=== PATIENT | female | born 1930 | race Caucasian/White ===

== ENCOUNTER 2017-07-25 10:26 | Day surgery (SDC) | payer OTHER ==
[~2017-07-25 10:26] MED LIST: D5 LR 1000 ML 1,000 ML IV ONE
[2017-07-25] MEDS ORDERED: DIPRIVAN VIAL 20 ML ONE (10:41)
[2017-07-25 11:56] VITALS: BP 162/83
== END 2017-07-25 11:57 | disposition home or self-care (01) ==
LOC: SURG1 10:26
PROVIDERS: ATTEND Internal Medicine Gastroenterology
PROC: 0DJ08ZZ Inspection of Upper Intestinal Tract, Via Natural or Artificial Opening Endoscopic (ICD-10-PCS; principal; 2017-07-25 15:45)
PROC: 0DB68ZX Excision of Stomach, Via Natural or Artificial Opening Endoscopic, Diagnostic (ICD-10-PCS; principal; 2017-07-25 15:45)
PROC: 0D757ZZ Dilation of Esophagus, Via Natural or Artificial Opening (ICD-10-PCS; principal; 2017-07-25 15:45)
DX: R13.19 Other dysphagia (principal); R10.13 Epigastric pain; K21.9 Gastro-esophageal reflux disease without esophagitis; K22.2 Esophageal obstruction; K22.4 Dyskinesia of esophagus; K20.8 Other esophagitis; K29.60 Other gastritis without bleeding
CPT/HCPCS: 99100; A4217; J3490; J7120

== ENCOUNTER 2017-08-18 00:59 | Inpatient (IN) | payer OTHER ==
--- NOTE | 2017-08-18 01:35 | DR.GENAD ---
HPI - HPI Comment HPI Comment: PATIENT GOT WORSE TONIGHT. NO FEVER. HAVING SYMTOMS FOR PAST 3 DAYS. NO FEVER REPORTED. - Complaint/Symptoms Chief Complaint Doctors Comments: INCREASING SOB ABD CHEST PAIN TIMES 3 DAYS. - Nurses notes reviewed Nurses Notes Review: Yes - Source History Provided: Patient, [facility] - Mode of Arrival Mode of Arrival: Stretcher - Timing Came on: Gradually - Duration Duration: Constant Duration: Days - Severity Severity: Moderate PMH - PMH Past Surgical History: Yes ROS - Review of Systems Constitutional: Weakness, Fatigue. negative: Chills, Fever Eyes: No Symptoms Reported. negative: Eye Pain, Discharge ENTM: No Symptoms Reported, Nose Congestion. negative: Ear Pain, Nose Discharge , Throat Pain Respiratoy: No Symptoms Reported, Productive Cough, Short of Breath, Wheezing. negative: Hemoptysis Cardiovascular: No Symptoms Reported, Chest Pain Gastrointestinal/Abdominal: No Symptoms Reported. negative: Abdominal Pain, Nausea, Vomiting Genitourinary: negative: Dysuria, Hematuria Neurological: Headache, Weakness, Dizziness Musculoskeletal: Muscle Pain Integumentary: No Symptoms Reported Hematologic/Lymphatic: No Symptoms Reported Endocrine: No Symptoms Reported All Other Systems: Reviewed and Negative PE - Vital Signs Vitals: Temperature 98.2 F Pulse Rate [Apical] 88 Pulse Rate 73 Respiratory Rate 21 Blood Pressure [Right Arm] 160/72 Blood Pressure 139/71 O2 Sat by Pulse Oximetry 96 - General Limitations: No Limitations General Appearance: Alert - Head Head Exam: Normal Inspection - Eyes Eye exam: Normal Appearance - ENT ENT Exam: Normal External Ear Exam External Ear Exam: Normal External Inspection TM/Canal Exam: Bilateral Normal Nose Exam: Normal Nose Exam Mouth Exam: Normal Inspection Throat Exam: Normal Inspection - Neck Neck Exam: Trachea Midline - Chest Chest Inspection: Symmetric Chest Wall Rise - Respiratory Respiratory Exam: Normal Lung Sounds Bilat Respiratory Exam: Bilateral Wheezing, Bilateral Rhonchi, Lower Wheezing, Lower Rhonchi - Cardiovascular Cardiovascular Exam: Regular Rate, Normal Rhythm, Normal Heart Sounds - Abdominal Exam Abdominal Exam: Normal Bowel Sounds, Soft. negative: Tenderness - Extremities Extremities Exam: Normal Inspection - Back Back Exam: Normal Inspection - Neurologic Neurological Exam: Alert, Oriented X3 - Psychiatric Psychiatric Exam: Anxious - Skin Skin Exam: Normal Color MDM - Additional Information Additional Information Obtained From: Family - Differential Diagnosis Differential Diagnosis: CHEST PAIN, CHF, PNEUMONIA, BRONCHITIS, RESP INSUFFIENCY Course - Treatment Treatment: SEE [facility]ERS. - Consultation Consultation Comments: DISCUSS PT WITH DR. DURHAM. HE WILL ADMIT PATIENT. - Education/Counseling Education/Counseling: Patient, Family, Education Educated On: Treatment, Diagnosis ROR - Labs Reviewed Laboratory Results Reviewed?: Yes Result Diagrams: 08/18/17 01:50 08/18/17 01:50 Laboratory: WBC 7.2 X10^3/uL (3.6-10.0) 08/18/17 01:50 RBC 3.31 X10^6/uL (3.5-5.4) L 08/18/17 01:50 Hgb 9.8 g/dL (12.0-16.0) L 08/18/17 01:50 Hct 28.7 % (36.0-47.0) L 08/18/17 01:50 MCV 86.7 fL (80.0-100.0) 08/18/17 01:50 MCH 29.6 pg (27.0-34.0) 08/18/17 01:50 MCHC 34.2 g/dL (33.0-35.0) 08/18/17 01:50 RDW 16.9 % (11.6-16.5) H 08/18/17 01:50 Plt Count 236 X10^3/uL (150.0-450.0) 08/18/17 01:50 Plt Count Comment Adequate (ADEQUATE) 08/18/17 01:50 MPV 8.8 fL (7.4-11.0) 08/18/17 01:50 Neut % (Auto) 19.6 % (42.0-75.0) L 08/18/17 01:50 Lymph % (Auto) 70.8 % (21.0-51.0) H 08/18/17 01:50 [place] % (Auto) 8.3 % (0.0-13.0) 08/18/17 01:50 Eos % (Auto) 0.6 % (0.9-2.9) L 08/18/17 01:50 Baso % (Auto) 0.7 % (0.2-1.0) 08/18/17 01:50 Neut # (Auto) 1.4 x10^3/uL (2.2-4.8) L 08/18/17 01:50 Lymph # (Auto) 5.1 X10^3/uL (1.3-2.9) H 08/18/17 01:50 [place] # (Auto) 0.6 x10^3/uL (0.3-0.8) 08/18/17 01:50 Eos # (Auto) 0.0 x10^3/uL (0.0-0.2) 08/18/17 01:50 Baso # (Auto) 0.1 X10^3/uL (0.0-0.1) 08/18/17 01:50 Absolute Nucleated RBC 0.1 /100WBC 08/18/17 01:50 Total Counted 100 08/18/17 01:50 Neutrophils % (Manual) 25 % (39-76) L 08/18/17 01:50 Band Neutrophils % 8 % (0-10) 08/18/17 01:50 Lymphocytes % (Manual) 53 % (13-43) H 08/18/17 01:50 Monocytes % (Manual) 6 % (4-9) 08/18/17 01:50 Atypical Lymphocytes 8 08/18/17 01:50 Plt Morphology Comment Normal (NORMAL) 08/18/17 01:50 RBC Morphology Abnormal (NORMAL) A 08/18/17 01:50 Hypochromasia 1+ A 08/18/17 01:50 Anisocytosis Slight A 08/18/17 01:50 Target Cells Present 08/18/17 01:50 Sodium 136 mmol/L (136-145) 08/18/17 01:50 Corrected Sodium TNP 08/18/17 01:50 Potassium 3.5 mmol/L (3.5-5.1) 08/18/17 01:50 Chloride 98 mmol/L (98-107) 08/18/17 01:50 Carbon Dioxide 29.8 mmol/L (21-32) 08/18/17 01:50 BUN 20 mg/dL (7-18) H 08/18/17 01:50 Creatinine 1.41 mg/dL (0.55-1.02) H 08/18/17 01:50 Est GFR (MDRD) Af Amer 45 (>60) L 08/18/17 01:50 Est GFR (MDRD) Non-Af 37 (>60) L 08/18/17 01:50 Glucose 106 mg/dL (65-99) H 08/18/17 01:50 Lactic Acid 1.4 mmol/L (0.4-2.0) 08/18/17 01:50 Calcium 8.6 mg/dL (8.5-10.1) 08/18/17 01:50 Corrected Calcium 9.6 mg/dL (8.5-10.1) 08/18/17 01:50 Total Bilirubin 0.20 mg/dL (0.2-1.0) 08/18/17 01:50 AST 20 Units/L (15-37) 08/18/17 01:50 ALT 12 Units/L (12-78) 08/18/17 01:50 Alkaline Phosphatase 92 Units/L (46-116) 08/18/17 01:50 Creatine Kinase 72 Units/L (26-192) 08/18/17 01:50 CK-MB (CK-2) 2.2 ng/mL (0-4.0) 08/18/17 01:50 CK/CKMB % Calc 3.1 % (<4) 08/18/17 01:50 Troponin I 0.18 ng/mL (0-1.5) 08/18/17 01:50 C-Reactive Protein 26.50 mg/L (0-3.0) H 08/18/17 01:50 Total Protein 8.5 g/dL (6.4-8.2) H 08/18/17 01:50 Albumin 2.7 g/dL (3.4-5.0) L 08/18/17 01:50 Globulin 5.8 g/dL (2.5-4.5) H 08/18/17 01:50 Albumin/Globulin Ratio 0.5 Ratio (1.1-2.1) L 08/18/17 01:50 - XRAY XRAY Interpreted by: Radiologist XRAY Findings: REPORT DISCUSS WITH PATIENT AND SON. - EKG Rhythm: NSR (EKG NOTED) - Diagnosis Discharge Problem: SOB (shortness of breath) Pneumonia Qualifiers: Pneumonia type: due to unspecified organism Laterality: right Lung location: lower lobe of lung Qualified Code(s): J18.1 - Lobar pneumonia, unspecified organism CHF (congestive heart failure) Qualifiers: Heart failure type: combined systolic and diastolic Heart failure chronicity: acute on chronic Qualified Code(s): I50.43 - Acute on chronic combined systolic (congestive) and diastolic (congestive) heart failure - Discharge Plan Disposition: ADMITTED INPATIENT Condition: Stable - Follow ups/Referrals - Instructions
[2017-08-18 01:36] VITALS: BMI 19.3
[2017-08-18] MEDS ORDERED: DUONEB 0.5 MG/3 MG NEB ONE (01:38)
[2017-08-18 02:03] LABS: BASOPHILS # (AUTO) 0.1 X10^3/uL (0.0-0.1); BASOPHILS % (AUTO) 0.7 % (0.2-1.0); EOSINOPHILS % (AUTO) 0.6 % (0.9-2.9); HEMATOCRIT 28.7 % (36.0-47.0); HEMOGLOBIN 9.8 g/dL (12.0-16.0); LYMPHOCYTES # (AUTO) 5.1 X10^3/uL (1.3-2.9); LYMPHOCYTES % (AUTO) 70.8 % (21.0-51.0); MEAN CORPUSCULAR HEMOGLOBIN 29.6 pg (27.0-34.0); MEAN CORPUSCULAR HGB CONC 34.2 g/dL (33.0-35.0); MEAN CORPUSCULAR VOLUME 86.7 fL (80.0-100.0); MEAN PLATELET VOLUME 8.8 fL (7.4-11.0); MONOCYTES # (AUTO) 0.6 x10^3/uL (0.3-0.8); MONOCYTES % (AUTO) 8.3 % (0.0-13.0); NEUTROPHILS # (AUTO) 1.4 x10^3/uL (2.2-4.8); NEUTROPHILS % (AUTO) 19.6 % (42.0-75.0); PLATELET COUNT 236 X10^3/uL (150.0-450.0); RED BLOOD COUNT 3.31 X10^6/uL (3.5-5.4); RED CELL DISTRIBUTION WIDTH 16.9 % (11.6-16.5); WHITE BLOOD COUNT 7.2 X10^3/uL (3.6-10.0)
[2017-08-18 02:23] LABS: BAND NEUTROPHILS % 8 % (0-10); BLOOD UREA NITROGEN 20 mg/dL (7-18); CALCIUM 8.6 mg/dL (8.5-10.1); CARBON DIOXIDE 29.8 mmol/L (21-32); CHLORIDE 98 mmol/L (98-107); CREATININE 1.41 mg/dL (0.55-1.02); SODIUM 136 mmol/L (136-145); TROPONIN I 0.18 ng/mL (0-1.5); eGFR BLACK RACES 45 (>60); eGFR NON BLACK RACES 37 (>60)
[2017-08-18 02:24] LABS: ANISOCYTOSIS SLIGHT; HYPOCHROMASIA 1+; PLATELET MORPHOLOGY COMMENT NORMAL (NORMAL); TARGET CELLS PRESENT
[2017-08-18 02:28] LABS: LACTIC ACID 1.4 mmol/L (0.4-2.0)
--- NOTE | 2017-08-18 02:33 | RAD ---
AP chest Indication: Shortness of breath Comparison: 08/16/2017 Findings: Trachea is midline. Heart size remains enlarged. There is a large right-sided pleural effus ion with dense consolidation within the right mid lower lung consistent with either compressive atele ctasis or developing infiltrate. Left lung demonstrates chronic interstitial lung change without foca l airspace opacity. There is a small left-sided pleural effusion as well. No acute osseous abnormalit y. Impression: 1.Large right and small left-sided pleural effusions, consolidation within the right mid and lower akbar ng likely represents compressive atelectasis versus developing infiltrate for which clinical correlat ion is needed. 2.Stable cardiomegaly. Reported By:
[2017-08-18] MEDS ORDERED: XANAX PO ONE ×2 (02:41→13:39)
[2017-08-18 02:42] LABS: ALANINE AMINOTRANSFERASE 12 Units/L (12-78); ALBUMIN 2.7 g/dL (3.4-5.0); ALKALINE PHOSPHATASE 92 Units/L (46-116); ASPARTATE AMINO TRANSFERASE 20 Units/L (15-37); CKMB % 3.1 % (<4); COR CA(FOR HYPOALB) 9.6 mg/dL (8.5-10.1); CREATINE KINASE 72 Units/L (26-192); CREATINE KINASE MB 2.2 ng/mL (0-4.0); TOTAL PROTEIN 8.5 g/dL (6.4-8.2)
[2017-08-18] MEDS ORDERED: XANAX ONE (02:44)
[2017-08-18 02:47] LABS: C-REACTIVE PROTEIN 26.5 mg/L (0-3.0)
[2017-08-18] MEDS ORDERED: LEVAQUIN PREMIX IV 750 MG 750 MG/150 ML BAG IV ONE ×2 (02:48→02:50)
[2017-08-18] MEDS ORDERED: NS 1000 ML 1,000 ML ONE (02:50)
[2017-08-18] MEDS: NS 1000 ML 1,000 ML IV SCH (02:59)
[2017-08-18] MEDS ORDERED: CONSULT PHARMACY - ANTIBIOTIC XX SCH (05:00)
[2017-08-18] MEDS ORDERED: SALINE 3% 15 ML NEB TX ONE (05:29)
[2017-08-18 06:01] LABS: CKMB % 2.7 % (<4); TROPONIN I 0.16 ng/mL (0-1.5)
[2017-08-18 06:05] LABS: BILIRUBIN,URINE NEGATIVE (NEGATIVE); BLOOD/HEMOGLOBIN,URINE 3+ (NEGATIVE); GLUCOSE, URINE NEGATIVE (NEGATIVE); KETONES,URINE NEGATIVE (NEGATIVE); LEUKOCYTE ESTERASE ,URINE NEGATIVE (NEGATIVE); NITRITES,URINE NEGATIVE (NEGATIVE); PROTEIN,URINE 3+ (NEGATIVE); UROBILINOGEN,URINE NORMAL (NORMAL)
[2017-08-18 06:18] LABS: APPEARANCE,URINE CLEAR (CLEAR); COLOR,URINE YELLOW (YELLOW)
[2017-08-18 06:22] LABS: AMORPHOUS SEDIMENT,UR 2+ /HPF (NEGATIVE); BACTERIA,URINE NEGATIVE /HPF (NEGATIVE); SQUAMOUS EPITHELIAL CELL,UR RARE /HPF (NEGATIVE)
[2017-08-18] MEDS: BUMEX INJ 1 MG VIAL IVP SCH ×3 (06:35→10:04)
[2017-08-18] MEDS: DUONEB 0.5 MG/3 MG NEB SCH ×4 (09:00→20:15)
[2017-08-18] MEDS ORDERED: BENICAR TAB 40 MG PO SCH (09:00)
[2017-08-18] MEDS: ALBUMIN HUMAN 25%- 100ML 100 ML IV SCH (09:30)
[2017-08-18] MEDS: PROTONIX INJ 40 MG VIAL IVP SCH ×2 (09:32→20:41)
[2017-08-18] MEDS: ROBITUSSIN DM PO SCH ×5 (09:32→21:07)
[2017-08-18] MEDS: PEPCID 20 MG IV PREMIX* 20 MG/50 ML BAG IV SCH ×2 (09:50→20:21)
[2017-08-18 11:19] LABS: BASOPHILS % (AUTO) 0.4 % (0.2-1.0); EOSINOPHILS % (AUTO) 0.8 % (0.9-2.9); HEMATOCRIT 25.7 % (36.0-47.0); HEMOGLOBIN 8.8 g/dL (12.0-16.0); LYMPHOCYTES # (AUTO) 3.9 X10^3/uL (1.3-2.9); LYMPHOCYTES % (AUTO) 68.4 % (21.0-51.0); MEAN CORPUSCULAR HEMOGLOBIN 29.9 pg (27.0-34.0); MEAN CORPUSCULAR HGB CONC 34.4 g/dL (33.0-35.0); MEAN CORPUSCULAR VOLUME 87.1 fL (80.0-100.0); MEAN PLATELET VOLUME 8.2 fL (7.4-11.0); MONOCYTES # (AUTO) 0.6 x10^3/uL (0.3-0.8); MONOCYTES % (AUTO) 10.3 % (0.0-13.0); NEUTROPHILS # (AUTO) 1.2 x10^3/uL (2.2-4.8); NEUTROPHILS % (AUTO) 20.1 % (42.0-75.0); PLATELET COUNT 218 X10^3/uL (150.0-450.0); RED BLOOD COUNT 2.95 X10^6/uL (3.5-5.4); RED CELL DISTRIBUTION WIDTH 16.9 % (11.6-16.5); WHITE BLOOD COUNT 5.7 X10^3/uL (3.6-10.0)
[2017-08-18 11:42] LABS: ALANINE AMINOTRANSFERASE 12 Units/L (12-78); ALBUMIN 3.5 g/dL (3.4-5.0); ALKALINE PHOSPHATASE 75 Units/L (46-116); ASPARTATE AMINO TRANSFERASE 18 Units/L (15-37); BLOOD UREA NITROGEN 17 mg/dL (7-18); CALCIUM 8.5 mg/dL (8.5-10.1); CARBON DIOXIDE 30.8 mmol/L (21-32); CHLORIDE 99 mmol/L (98-107); SODIUM 139 mmol/L (136-145); TOTAL PROTEIN 8.6 g/dL (6.4-8.2); eGFR BLACK RACES 42 (>60); eGFR NON BLACK RACES 35 (>60)
[2017-08-18] MEDS ORDERED: NS 250 ML IV 250 ML IV ONE (12:36)
[2017-08-18] MEDS ORDERED: SODIUM BICARBONATE 8.4% INJ ADULT ONE (12:36)
[2017-08-18] MEDS ORDERED: CALCIUM GLUCONATE 10% IV ONE (12:36)
[2017-08-18 13:00] LABS: CKMB % 2.9 % (<4); CREATINE KINASE MB 1.7 ng/mL (0-4.0); TROPONIN I 0.17 ng/mL (0-1.5)
[2017-08-18 13:05] LABS: BAND NEUTROPHILS % 1 % (0-10); BASOPHILS % (MANUAL) 1 % (0-1); PLATELET MORPHOLOGY COMMENT NORMAL (NORMAL)
[2017-08-18] MEDS ORDERED: ASCORBIC ACID 1000 MG PO SCH (13:45)
[2017-08-18] MEDS: XANAX PO SCH ×2 (13:50→21:36)
[2017-08-18] MEDS: PATIENT'S HOME MEDICATION (Amino Acids/Protein Hydrolys [Pro-Stat Awc Liquid Packet] 30 ML PO SCH ×2 (14:59→21:07)
[2017-08-18] MEDS ORDERED: VITAMIN C ONE (15:53)
[2017-08-18] MEDS: COZAAR PO SCH (16:18)
[2017-08-18] MEDS: NORCO 10/325 TAB PO SCH ×3 (16:18→21:34)
[2017-08-18] MEDS: TAB-A-VITE PO SCH (16:19)
[2017-08-18] MEDS ORDERED: K-RIDER 10 MEQ/NS 100 ML 10 MEQ/100 ML BAG IV PRN (16:23)
[2017-08-18] MEDS ORDERED: POTASSIUM CHLORIDE LIQ 20 MEQ UDC PO PRN (16:23)
[2017-08-18] MEDS ORDERED: POTASSIUM CHL 40 MEQ/NS 0.45% 500 ML IV PRN (16:23)
[2017-08-18] MEDS ORDERED: POTASSIUM CHL 60 MEQ/NS 0.45% 500 ML IV PRN (16:23)
[2017-08-18] MEDS ORDERED: K-LYTE EFFERVESCENT PO PRN (16:23)
[2017-08-18] MEDS: ELDERTONIC + WINE PO SCH (18:32)
[2017-08-18] MEDS: MAGNESIUM SULFATE 1 GM/100 mL PREMIX 1 GM/100 ML BAG IV PRN ×2 (18:50→21:50)
[2017-08-18] MEDS: TUSSIONEX PENNKINETIC SUSP PO PRN (19:28)
[2017-08-18] MEDS: NORVASC TAB 5 MG PO SCH (20:39)
[2017-08-18] MEDS: VITAMIN C PO SCH (20:41)
[2017-08-18] MEDS: ZOLOFT PO SCH (20:41)
[2017-08-18] MEDS: ZyrTEC TAB 10 MG PO SCH (20:41)
[2017-08-18] MEDS: MIRALAX POWDER (1 DOSE 17GM) PO SCH (20:48)
[2017-08-18] MEDS: PATIENT'S HOME MEDICATION (Lubiprostone [Amitiza] 8 MCG) PO SCH (20:49)
[2017-08-19] MEDS: DUONEB 0.5 MG/3 MG NEB SCH ×6 (00:35→20:25)
[2017-08-19] MEDS: NORCO 10/325 TAB PO SCH ×5 (02:00→21:50)
[2017-08-19] MEDS: NS 1000 ML 1,000 ML IV SCH (05:59)
[2017-08-19] MEDS: XANAX PO SCH ×4 (06:46→21:52)
[2017-08-19 06:48] LABS: BASOPHILS % (AUTO) 0.4 % (0.2-1.0); EOSINOPHILS # (AUTO) 0.1 x10^3/uL (0.0-0.2); EOSINOPHILS % (AUTO) 0.8 % (0.9-2.9); HEMATOCRIT 24.7 % (36.0-47.0); HEMOGLOBIN 8.5 g/dL (12.0-16.0); LYMPHOCYTES # (AUTO) 4.3 X10^3/uL (1.3-2.9); LYMPHOCYTES % (AUTO) 63.9 % (21.0-51.0); MEAN CORPUSCULAR HEMOGLOBIN 30.1 pg (27.0-34.0); MEAN CORPUSCULAR HGB CONC 34.2 g/dL (33.0-35.0); MEAN CORPUSCULAR VOLUME 87.8 fL (80.0-100.0); MEAN PLATELET VOLUME 8.8 fL (7.4-11.0); MONOCYTES # (AUTO) 0.9 x10^3/uL (0.3-0.8); MONOCYTES % (AUTO) 13.4 % (0.0-13.0); NEUTROPHILS # (AUTO) 1.5 x10^3/uL (2.2-4.8); NEUTROPHILS % (AUTO) 21.5 % (42.0-75.0); PLATELET COUNT 201 X10^3/uL (150.0-450.0); RED BLOOD COUNT 2.81 X10^6/uL (3.5-5.4); RED CELL DISTRIBUTION WIDTH 16.8 % (11.6-16.5); WHITE BLOOD COUNT 6.8 X10^3/uL (3.6-10.0)
[2017-08-19 07:06] LABS: ALANINE AMINOTRANSFERASE 12 Units/L (12-78); ALBUMIN 2.8 g/dL (3.4-5.0); ALKALINE PHOSPHATASE 66 Units/L (46-116); ASPARTATE AMINO TRANSFERASE 20 Units/L (15-37); BLOOD UREA NITROGEN 21 mg/dL (7-18); CALCIUM 8.3 mg/dL (8.5-10.1); CARBON DIOXIDE 29.5 mmol/L (21-32); CHLORIDE 102 mmol/L (98-107); COR CA(FOR HYPOALB) 9.3 mg/dL (8.5-10.1); MAGNESIUM 2.6 mg/dL (1.7-2.9); SODIUM 139 mmol/L (136-145); TOTAL PROTEIN 7.6 g/dL (6.4-8.2); eGFR BLACK RACES 42 (>60); eGFR NON BLACK RACES 35 (>60)
--- NOTE | 2017-08-19 07:11 | RAD ---
HISTORY: Shortness of breath Study: Chest AP portable Comparison: 08/18/2017 Findings: The patient is rotated to the right. The heart is mildly enlarged. No definite congestive heart failu re is noted. The aorta is calcified. There is a large right pleural effusion present obscuring the akbar ng markings in the right middle and right lower lobes. Underlying infiltrate cannot be excluded. The remainder of the lung barnett are clear. A minimal left pleural effusion is present. IMPRESSION: No change large right pleural effusion obscuring the lung markings in the right middle and right lowe r lobes Mild cardiomegaly without congestive heart failure Small left pleural effusion Reported By:
[2017-08-19 07:34] LABS: PLATELET MORPHOLOGY COMMENT NORMAL (NORMAL)
--- NOTE | 2017-08-19 08:29 | DR.H&P ---
H&P - History & Physical for Day of: H&P Date: 08/18/17 - Chief Complaint Chief Complaint: shortness of breath, chest pain - Allergies Allergies/Adverse Reactions: Allergies Allergy/AdvReac Type Severity Reaction Status Date / Time atorvastatin [From Lipitor] AdvReac Verified 08/18/17 01:37 cisapride [From Propulsid] AdvReac Verified 08/18/17 01:37 clindamycin AdvReac Verified 08/18/17 01:37 codeine AdvReac Verified 08/18/17 01:37 diazepam [From Valium] AdvReac Verified 08/18/17 01:37 famciclovir [From Famvir] AdvReac Verified 08/18/17 01:37 furosemide [From Lasix] AdvReac Verified 08/18/17 01:37 hydroxyzine [From Atarax] AdvReac Verified 08/18/17 01:37 lincomycin [From Lincocin] AdvReac Verified 08/18/17 01:37 Penicillins AdvReac Verified 08/18/17 01:37 prednisone AdvReac Verified 08/18/17 01:37 shellfish derived AdvReac Verified 08/18/17 01:37 Sulfa (Sulfonamide AdvReac Verified 08/18/17 01:37 Antibiotics) [SULFA] - History of Present Illness History of Present Illness: Ms. Wayne is a 87 year old patient of Dr.Sinclair chamberlain who presented to the emergency room from the [facility]. She presented with complaints of shortness of breath and chest pain for the past 3 days. She reports that symptoms are worse today than they have been. She is alert and oriented. She denies fever. On examination, patient is noted to have bilateral wheezes and rhonchi throughout lungs on auscultation. On arrival, vitals were 98.4, 85, 28, 100%NC/2L, 182/82. Labs were obtained. Abnormal Labs include the following: RBC 3.31, HGB 9.8, HCT 28.7, RDW 16.9, BUN 20, Creatinine 1.41, GFR ( AA) 45, GFR (NON) 37, Glucose 106, Total Protein 8.5, Albumin 2.7, Globulin 5.8 , A/G ratio 0.5. Urinalysis reveals: Protein 3+, Occult Blood 3+, RBC 3-5, Squamous Epith Cells Rare. A chest x-ray was obtained and revealed: Large right and small left-sided pleural effusions, consolidation within the right mid and lower lung likely represents compressive atelectasis versus developing infiltrate for which clinical correlation is needed. Stable cardiomegaly. EKG revealed atrial flutter with varied AV block and a heart rate of 95. Patient was given a Duoneb 0.5 MG/3 MG 1 EA NEB once, Xanax 0.25 MG PO once, and Levaquin 750 MG IV once in the emergency room. She was admitted to the hospital for further evaluation. She was started on NS 1000 ML IV @ 20 ML/HR for gentle IV hydration, Levaquin 750 MG IV Q48H for antibiotic therapy along with Duoneb 0.5 MG/3 MG 1 EA NEB Q4 for respiratory complication. Following admission, her blood pressure remained slightly elevated. We will resume home medications and start cozaar 50mg po daily today. We will continue to monitor and follow up with am labs and chest xray. - Past Medical History Past Medical History: Anxiety, Coronary Artery Disease, Depression, Diabetes, Dyslipidemia, GERD, Hypertension, Hypothyroidism - Past Surgical History Surgical History: Hysterectomy, Mastectomy - Social History Does patient currently use any type of tobacco product: No Have you used tobacco products in the last 12 months: No Type of Tobacco Use: None Does any household member use tobacco: No Alcohol Use: None Drug Use: None - Medications Home Medications: Cetirizine HCl [Zyrtec] 10 mg PO HS 08/18/17 [History Confirmed 08/18/17] Dextromethorphan-Guaifenesin [Robitussin Dm] 10 ml PO BID 08/18/17 [History Confirmed 08/18/17] Ipratropium/Albuterol Nebule [DUONEB 0.5 MG/3 MG NEBULE *] 1 nebule NEB TID [History Confirmed 08/18/17] - Review of Systems Constitutional: Weakness, Malaise. denies: Fever Eyes: No Symptoms Reported ENT: Nose Congestion Respiratory: Cough, Shortness of Breath, Wheezing Cardiovascular: Chest Pain Gastrointestinal: No Symptoms Reported Genitourinary: No Symptoms Reported Musculoskeletal: No Symptoms Reported Skin: No Symptoms Reported Neurological: Weakness, Other (headache, dizziness ) - Physical Exam Vital Signs: Temperature 98.9 F Pulse Rate [Apical] 69 Pulse Rate 86 Respiratory Rate 19 Blood Pressure [Right Arm] 142/65 Blood Pressure 139/71 O2 Sat by Pulse Oximetry 100 Oriented: Normal Eyes: Normal Ear: Normal Nose: Normal Throat: Normal Respiratory: Rhonchi Throughout, Wheezes Throughout Cardiovascular: Normal : Normal Auscultation: Bowel Sounds: Normal Palpation: Normal Tenderness: Normal Skin: Normal Musculoskeletal: Normal Psychiatric: Normal Mood Description: Calm Affect: Normal Speech Pattern: Clear - Assessment/Plan (1) Pneumonia Qualifiers: Pneumonia type: due to unspecified organism Laterality: right Lung location: lower lobe of lung Qualified Code(s): J18.1 - Lobar pneumonia, unspecified organism Status: Acute Plan: admit, levaquin 750mg iv q48h, respiratory tx, supplemental oxygen, robitussin, tussionex, continue to monitor (2) CHF (congestive heart failure) Qualifiers: Heart failure type: combined systolic and diastolic Heart failure chronicity: acute on chronic Qualified Code(s): I50.43 - Acute on chronic combined systolic (congestive) and diastolic (congestive) heart failure Status: Acute Plan: respiratory tx, supplemental oxygen, bumex, continue to monitor (3) SOB (shortness of breath) Status: Acute Plan: respiratory treatments, supplemental oxygen, continue to monitor (4) Hypertension Qualifiers: Hypertension type: essential hypertension Qualified Code(s): I10 - Essential (primary) hypertension Status: Acute Plan: losartan 50mg po daily, norvasc 5mg po daily, continue to monitor
[2017-08-19] MEDS: MIRALAX POWDER (1 DOSE 17GM) PO SCH ×2 (08:58→21:51)
[2017-08-19] MEDS: VITAMIN C PO SCH ×2 (08:58→21:52)
[2017-08-19] MEDS: PROTONIX INJ 40 MG VIAL IVP SCH ×2 (08:59→21:52)
[2017-08-19] MEDS: ROBITUSSIN DM PO SCH ×4 (08:59→21:52)
[2017-08-19] MEDS: PATIENT'S HOME MEDICATION (Amino Acids/Protein Hydrolys [Pro-Stat Awc Liquid Packet] 30 ML PO SCH ×2 (08:59→21:51)
[2017-08-19] MEDS: PATIENT'S HOME MEDICATION (Lubiprostone [Amitiza] 8 MCG) PO SCH ×2 (08:59→21:51)
[2017-08-19] MEDS: BUMEX INJ 1 MG VIAL IVP SCH (09:00)
[2017-08-19] MEDS: ALBUMIN HUMAN 25%- 100ML 100 ML IV SCH (09:00)
[2017-08-19] MEDS: TAB-A-VITE PO SCH (09:01)
[2017-08-19] MEDS: COZAAR PO SCH (09:01)
[2017-08-19] MEDS: PEPCID 20 MG IV PREMIX* 20 MG/50 ML BAG IV SCH ×2 (09:02→21:51)
[2017-08-19] MEDS: NYSTATIN SUSP PO SCH ×3 (13:46→21:51)
[2017-08-19] MEDS: ELDERTONIC + WINE PO SCH (16:59)
[2017-08-19] MEDS: NORVASC TAB 5 MG PO SCH (21:51)
[2017-08-19] MEDS: ZyrTEC TAB 10 MG PO SCH (21:52)
[2017-08-19] MEDS: ZOLOFT PO SCH (21:52)
[2017-08-20] MEDS: DUONEB 0.5 MG/3 MG NEB SCH ×5 (01:29→16:31)
[2017-08-20] MEDS: NORCO 10/325 TAB PO SCH ×6 (02:16→20:53)
--- NOTE | 2017-08-20 04:36 | RAD ---
AP chest Indication: Shortness breath Comparison: 08/19/2017 Findings: No change large right-sided pleural effusion. Stable small left-sided pleural effusion Hear t size remains enlarged . Trachea is midline. Hazy opacity within the right lung base and right mid l ayaan likely represents compressive atelectasis however developing infiltrate within the right lower lo be is not excluded. No acute osseous abnormality. Impression: Since previous examination no significant change in cardiomegaly, large right-sided pleur al effusion and dense airspace consolidation within the right mid and lower lung likely representing compressive atelectasis however clinical correlation is needed as parapneumonic effusion or underlyin g malignancy is not excluded Stable small left-sided pleural Reported By:
[2017-08-20 05:21] LABS: BASOPHILS % (AUTO) 0.3 % (0.2-1.0); EOSINOPHILS # (AUTO) 0.1 x10^3/uL (0.0-0.2); EOSINOPHILS % (AUTO) 1.5 % (0.9-2.9); HEMATOCRIT 24.4 % (36.0-47.0); HEMOGLOBIN 8.2 g/dL (12.0-16.0); LYMPHOCYTES # (AUTO) 3.9 X10^3/uL (1.3-2.9); LYMPHOCYTES % (AUTO) 61.7 % (21.0-51.0); MEAN CORPUSCULAR HEMOGLOBIN 29.8 pg (27.0-34.0); MEAN CORPUSCULAR HGB CONC 33.4 g/dL (33.0-35.0); MEAN CORPUSCULAR VOLUME 89.2 fL (80.0-100.0); MEAN PLATELET VOLUME 8.6 fL (7.4-11.0); MONOCYTES # (AUTO) 0.8 x10^3/uL (0.3-0.8); MONOCYTES % (AUTO) 13.1 % (0.0-13.0); NEUTROPHILS # (AUTO) 1.5 x10^3/uL (2.2-4.8); NEUTROPHILS % (AUTO) 23.4 % (42.0-75.0); PLATELET COUNT 210 X10^3/uL (150.0-450.0); RED BLOOD COUNT 2.74 X10^6/uL (3.5-5.4); RED CELL DISTRIBUTION WIDTH 16.9 % (11.6-16.5); WHITE BLOOD COUNT 6.3 X10^3/uL (3.6-10.0)
[2017-08-20 05:46] LABS: ALANINE AMINOTRANSFERASE 13 Units/L (12-78); ALBUMIN 3.2 g/dL (3.4-5.0); ALKALINE PHOSPHATASE 66 Units/L (46-116); ASPARTATE AMINO TRANSFERASE 18 Units/L (15-37); BLOOD UREA NITROGEN 22 mg/dL (7-18); CALCIUM 8.3 mg/dL (8.5-10.1); CARBON DIOXIDE 27.7 mmol/L (21-32); CHLORIDE 101 mmol/L (98-107); COR CA(FOR HYPOALB) 8.9 mg/dL (8.5-10.1); CREATININE 1.57 mg/dL (0.55-1.02); SODIUM 138 mmol/L (136-145); TOTAL PROTEIN 7.8 g/dL (6.4-8.2); eGFR BLACK RACES 40 (>60); eGFR NON BLACK RACES 33 (>60)
[2017-08-20] MEDS: XANAX PO SCH ×3 (05:48→21:47)
[2017-08-20] MEDS: NS 1000 ML 1,000 ML IV SCH (05:57)
[2017-08-20 06:14] LABS: BAND NEUTROPHILS % 1 % (0-10); PLATELET MORPHOLOGY COMMENT NORMAL (NORMAL)
[2017-08-20 06:15] LABS: HYPOCHROMASIA SLIGHT
[2017-08-20] MEDS: COLACE CAP 100 MG PO SCH ×4 (08:10→20:52)
[2017-08-20] MEDS: ALBUMIN HUMAN 25%- 100ML 100 ML IV SCH (08:11)
[2017-08-20] MEDS: PATIENT'S HOME MEDICATION (Amino Acids/Protein Hydrolys [Pro-Stat Awc Liquid Packet] 30 ML PO SCH ×4 (08:12→20:49)
[2017-08-20] MEDS: BUMEX INJ 1 MG VIAL IVP SCH (08:12)
[2017-08-20] MEDS: COZAAR PO SCH ×3 (08:12→10:05)
[2017-08-20] MEDS: MIRALAX POWDER (1 DOSE 17GM) PO SCH ×4 (08:13→20:50)
[2017-08-20] MEDS: ROBITUSSIN DM PO SCH ×6 (08:13→20:53)
[2017-08-20] MEDS: NYSTATIN SUSP PO SCH ×6 (08:13→20:54)
[2017-08-20] MEDS: LEVAQUIN PREMIX IV 750 MG 750 MG/150 ML BAG IV SCH (08:13)
[2017-08-20] MEDS: PROTONIX INJ 40 MG VIAL IVP SCH ×2 (08:13→20:50)
[2017-08-20] MEDS: PATIENT'S HOME MEDICATION (Lubiprostone [Amitiza] 8 MCG) PO SCH ×4 (08:13→20:47)
[2017-08-20] MEDS: VITAMIN C PO SCH ×4 (08:14→20:50)
[2017-08-20] MEDS: TAB-A-VITE PO SCH ×3 (08:14→10:05)
[2017-08-20] MEDS: LASIX IVP SCH ×2 (14:37→15:54)
[2017-08-20] MEDS: PEPCID 20 MG IV PREMIX* 20 MG/50 ML BAG IV SCH ×2 (14:37→20:54)
[2017-08-20] MEDS: ELDERTONIC + WINE PO SCH (17:55)
[2017-08-20] MEDS: ZOLOFT PO SCH (20:51)
[2017-08-20] MEDS: ZyrTEC TAB 10 MG PO SCH (20:52)
[2017-08-20] MEDS: NORVASC TAB 5 MG PO SCH (20:52)
[2017-08-21] MEDS: DUONEB 0.5 MG/3 MG NEB SCH ×7 (00:52→21:49)
[2017-08-21] MEDS: TUSSIONEX PENNKINETIC SUSP PO PRN (03:00)
[2017-08-21] MEDS: NORCO 10/325 TAB PO SCH ×4 (03:00→20:31)
[2017-08-21] MEDS: NS 1000 ML 1,000 ML IV SCH ×2 (04:11→16:54)
[2017-08-21] MEDS: XANAX PO SCH ×3 (05:39→22:01)
[2017-08-21 05:58] LABS: ALANINE AMINOTRANSFERASE 12 Units/L (12-78); ALBUMIN 3.4 g/dL (3.4-5.0); ALKALINE PHOSPHATASE 71 Units/L (46-116); ASPARTATE AMINO TRANSFERASE 16 Units/L (15-37); BLOOD UREA NITROGEN 26 mg/dL (7-18); CALCIUM 8.3 mg/dL (8.5-10.1); CARBON DIOXIDE 28.5 mmol/L (21-32); CHLORIDE 100 mmol/L (98-107); CREATININE 1.59 mg/dL (0.55-1.02); SODIUM 136 mmol/L (136-145); TOTAL PROTEIN 7.8 g/dL (6.4-8.2); eGFR BLACK RACES 39 (>60); eGFR NON BLACK RACES 33 (>60)
[2017-08-21 06:11] LABS: BASOPHILS % (AUTO) 0.3 % (0.2-1.0); EOSINOPHILS # (AUTO) 0.1 x10^3/uL (0.0-0.2); EOSINOPHILS % (AUTO) 1.8 % (0.9-2.9); HEMOGLOBIN 8.3 g/dL (12.0-16.0); LYMPHOCYTES # (AUTO) 3.6 X10^3/uL (1.3-2.9); LYMPHOCYTES % (AUTO) 52.7 % (21.0-51.0); MEAN CORPUSCULAR HEMOGLOBIN 30.4 pg (27.0-34.0); MEAN CORPUSCULAR HGB CONC 34.6 g/dL (33.0-35.0); MEAN CORPUSCULAR VOLUME 87.8 fL (80.0-100.0); MEAN PLATELET VOLUME 8.9 fL (7.4-11.0); MONOCYTES # (AUTO) 0.7 x10^3/uL (0.3-0.8); MONOCYTES % (AUTO) 10.9 % (0.0-13.0); NEUTROPHILS # (AUTO) 2.3 x10^3/uL (2.2-4.8); NEUTROPHILS % (AUTO) 34.3 % (42.0-75.0); PLATELET COUNT 219 X10^3/uL (150.0-450.0); RED BLOOD COUNT 2.74 X10^6/uL (3.5-5.4); RED CELL DISTRIBUTION WIDTH 16.9 % (11.6-16.5); WHITE BLOOD COUNT 6.7 X10^3/uL (3.6-10.0)
--- NOTE | 2017-08-21 07:00 | RAD ---
HISTORY: Shortness of breath Study: Chest AP portable Comparison: 08/20/2017 Findings: The patient is rotated significantly to the right. Heart size difficult to assess due to obscuration of the right heart border by a large right pleural effusion which obscures the lung markings in the r ight middle and right lower lobe. It is unchanged from the prior examination. The remainder of the akbar ng barnett are clear. The bony thorax is unremarkable. IMPRESSION: No change large right pleural effusion obscuring the lung markings in the right middle and right lowe r lobes. Underlying atelectasis infiltrate or neoplasm could not be is. Reported By:
[2017-08-21] MEDS: MIRALAX POWDER (1 DOSE 17GM) PO SCH ×2 (08:57→20:33)
[2017-08-21] MEDS: PROTONIX INJ 40 MG VIAL IVP SCH ×2 (08:58→20:33)
[2017-08-21] MEDS: BUMEX INJ 1 MG VIAL IVP SCH (08:58)
[2017-08-21] MEDS: PEPCID 20 MG IV PREMIX* 20 MG/50 ML BAG IV SCH (08:58)
[2017-08-21] MEDS: COZAAR PO SCH (08:59)
[2017-08-21] MEDS: NYSTATIN SUSP PO SCH ×4 (08:59→20:33)
[2017-08-21] MEDS: ROBITUSSIN DM PO SCH ×4 (08:59→20:33)
[2017-08-21] MEDS: VITAMIN C PO SCH ×2 (08:59→20:32)
[2017-08-21] MEDS: TAB-A-VITE PO SCH (08:59)
[2017-08-21] MEDS: PATIENT'S HOME MEDICATION (Amino Acids/Protein Hydrolys [Pro-Stat Awc Liquid Packet] 30 ML PO SCH ×2 (09:00→20:33)
[2017-08-21] MEDS: PATIENT'S HOME MEDICATION (Lubiprostone [Amitiza] 8 MCG) PO SCH ×2 (09:00→20:31)
--- NOTE | 2017-08-21 16:46 | CT ---
HISTORY: Shortness of breath Study: CT chest without contrast Comparison: Chest radiographs performed earlier today also on August 21, 2017 Technique: Multiple axial images of the chest were obtained from the thoracic inlet to the upper abdo men without the administration of IV contrast. Findings: Scattered subcentimeter lymph nodes are seen within the mediastinum. Evaluation of the mediastinum, h ilar regions, and vascular structures is limited without IV contrast. A small pericardial effusion i s noted measuring 7 mm in thickness anteriorly. Atherosclerotic changes are seen within the visualiz ed coronary arteries and aorta. A large right-sided pleural effusion with adjacent atelectasis is not ed. A small to moderate left-sided pleural effusion with adjacent atelectasis is demonstrated as well . An approximate 6 mm nodular opacity is seen within the right upper lobe on image 28 of series 8. An approximate 4 mm nodular opacity is seen within the left upper lobe on image 22 of series 8. An appr oximate 5 mm nodular opacity is seen within the left lower lobe on image 27 of series 8. A moderate-s ize hiatal hernia is demonstrated. Surgical clips are seen within the gallbladder fossa. Degenerative changes are seen within the visualized spine. IMPRESSION: Bilateral pulmonary nodules as discussed above. Recommend follow-up exam in 3-6 months unless clinica lly indicated sooner. Bilateral pleural effusions right greater than left as noted above. Small pericardial effusion. Other findings as noted above. Reported By:
[2017-08-21] MEDS: ZyrTEC TAB 10 MG PO SCH (20:31)
[2017-08-21] MEDS: ZOLOFT PO SCH (20:32)
[2017-08-21] MEDS: COLACE CAP 100 MG PO SCH (20:32)
[2017-08-21] MEDS: NORVASC TAB 5 MG PO SCH (20:32)
[2017-08-22] MEDS: DUONEB 0.5 MG/3 MG NEB SCH ×6 (00:56→21:45)
[2017-08-22] MEDS: NORCO 10/325 TAB PO SCH ×4 (02:00→21:03)
[2017-08-22] MEDS: NS 1000 ML 1,000 ML IV SCH (04:28)
[2017-08-22] MEDS: XANAX PO SCH ×3 (05:47→21:04)
[2017-08-22 06:28] LABS: BASOPHILS % (AUTO) 0.3 % (0.2-1.0); EOSINOPHILS # (AUTO) 0.1 x10^3/uL (0.0-0.2); EOSINOPHILS % (AUTO) 1.1 % (0.9-2.9); HEMATOCRIT 26.5 % (36.0-47.0); HEMOGLOBIN 8.9 g/dL (12.0-16.0); LYMPHOCYTES # (AUTO) 3.8 X10^3/uL (1.3-2.9); LYMPHOCYTES % (AUTO) 46.8 % (21.0-51.0); MEAN CORPUSCULAR HEMOGLOBIN 29.5 pg (27.0-34.0); MEAN CORPUSCULAR HGB CONC 33.7 g/dL (33.0-35.0); MEAN CORPUSCULAR VOLUME 87.5 fL (80.0-100.0); MONOCYTES # (AUTO) 0.8 x10^3/uL (0.3-0.8); MONOCYTES % (AUTO) 10.3 % (0.0-13.0); NEUTROPHILS # (AUTO) 3.4 x10^3/uL (2.2-4.8); NEUTROPHILS % (AUTO) 41.5 % (42.0-75.0); PLATELET COUNT 246 X10^3/uL (150.0-450.0); RED BLOOD COUNT 3.03 X10^6/uL (3.5-5.4); RED CELL DISTRIBUTION WIDTH 17.2 % (11.6-16.5); WHITE BLOOD COUNT 8.2 X10^3/uL (3.6-10.0)
[2017-08-22 07:26] LABS: ALANINE AMINOTRANSFERASE 12 Units/L (12-78); ALBUMIN 3.3 g/dL (3.4-5.0); ALKALINE PHOSPHATASE 79 Units/L (46-116); ASPARTATE AMINO TRANSFERASE 20 Units/L (15-37); BLOOD UREA NITROGEN 32 mg/dL (7-18); CALCIUM 8.9 mg/dL (8.5-10.1); CARBON DIOXIDE 25.2 mmol/L (21-32); CHLORIDE 101 mmol/L (98-107); COR CA(FOR HYPOALB) 9.5 mg/dL (8.5-10.1); CREATININE 1.51 mg/dL (0.55-1.02); SODIUM 138 mmol/L (136-145); TOTAL PROTEIN 8.2 g/dL (6.4-8.2); eGFR BLACK RACES 42 (>60); eGFR NON BLACK RACES 35 (>60)
[2017-08-22] MEDS: BUMEX INJ 1 MG VIAL IVP SCH ×2 (08:20→21:07)
[2017-08-22] MEDS: ROBITUSSIN DM PO SCH ×4 (08:20→21:08)
[2017-08-22] MEDS: NYSTATIN SUSP PO SCH ×4 (08:20→21:08)
[2017-08-22] MEDS: PROTONIX INJ 40 MG VIAL IVP SCH ×2 (08:20→21:08)
[2017-08-22] MEDS: PEPCID 20 MG IV PREMIX* 20 MG/50 ML BAG IV SCH (08:20)
[2017-08-22] MEDS: LEVAQUIN PREMIX IV 750 MG 750 MG/150 ML BAG IV SCH (08:20)
[2017-08-22] MEDS: VITAMIN C PO SCH ×2 (08:21→21:06)
[2017-08-22] MEDS: COZAAR PO SCH (08:21)
[2017-08-22] MEDS: PATIENT'S HOME MEDICATION (Amino Acids/Protein Hydrolys [Pro-Stat Awc Liquid Packet] 30 ML PO SCH ×2 (08:21→21:08)
[2017-08-22] MEDS: PATIENT'S HOME MEDICATION (Lubiprostone [Amitiza] 8 MCG) PO SCH ×2 (08:21→21:02)
[2017-08-22] MEDS: MIRALAX POWDER (1 DOSE 17GM) PO SCH ×2 (08:22→21:09)
[2017-08-22] MEDS: TAB-A-VITE PO SCH (08:26)
[2017-08-22] MEDS: MUCOMYST 20% 200 MG/ML NEB SCH ×4 (13:08→21:45)
--- NOTE | 2017-08-22 18:00 | PCM.PROG ---
Progress Note - Progress Note for Day of Date: 08/21/17 - Subjective Subjective: 87 wf admitted on 08/18 with pneumonia. Pt is currently on iv atbx and continues with diffuse rhonchi, decrease lung bases. pt more awake and alert this am, states she cannot cough up any mucous. pt is npo for ct chest this am. will continue resp therapy and supplemenatl o2, encourage pulmonary toileting, diuretics I & Os - Past Medical Family Social History Past Med/Fam/Surg Hx: No changes since H&P Allergies: Allergies atorvastatin [From Lipitor] Adverse Reaction (Verified 08/18/17 01:37) cisapride [From Propulsid] Adverse Reaction (Verified 08/18/17 01:37) clindamycin Adverse Reaction (Verified 08/18/17 01:37) codeine Adverse Reaction (Verified 08/18/17 01:37) diazepam [From Valium] Adverse Reaction (Verified 08/18/17 01:37) famciclovir [From Famvir] Adverse Reaction (Verified 08/18/17 01:37) furosemide [From Lasix] Adverse Reaction (Verified 08/18/17 01:37) hydroxyzine [From Atarax] Adverse Reaction (Verified 08/18/17 01:37) lincomycin [From Lincocin] Adverse Reaction (Verified 08/18/17 01:37) Penicillins Adverse Reaction (Verified 08/18/17 01:37) prednisone Adverse Reaction (Verified 08/18/17 01:37) shellfish derived Adverse Reaction (Verified 08/18/17 01:37) Sulfa (Sulfonamide Antibiotics) [SULFA] Adverse Reaction (Verified 08/18/17 01: 37) - Review of Systems ROS: No change since H&P - Vital Signs and I&O's Vital Signs: Temperature 98.4 F Pulse Rate [Right Brachial] 87 Pulse Rate [Apical] 84 Pulse Rate 88 Respiratory Rate 20 Blood Pressure [Right Arm] 125/58 Blood Pressure 139/71 O2 Sat by Pulse Oximetry 96 Intake and Output: Intake & Output 08/20/17 08/21/17 08/22/17 08/23/17 11:59 11:59 11:59 11:59 Intake Total 1451 1647 900 560 Output Total 1075 2150 1975 800 Balance 320 -083 -2902 -045 - Physical Exam Oriented: Normal Eyes: Normal Ear: Normal Nose: Normal Throat: Normal Respiratory: Diminished, Rhonchi Cardiovascular: Normal : Normal Auscultation: Bowel Sounds: Normal Tenderness: Normal Skin: Normal Musculoskeletal: Normal Psychiatric: Normal Mood Description: Calm Affect: Normal Speech Pattern: Clear, Appropriate - Laboratory and Diagnostics Result Diagrams: 08/22/17 05:25 08/22/17 05:25 Labs: 08/19/17 13:40 Sputum - Expectorated Sputum Sputum Culture - Final 08/19/17 13:40 Sputum - Expectorated Sputum - Final 08/18/17 01:50 Blood Blood Culture - Preliminary 08/18/17 01:40 Blood Blood Culture - Preliminary Laboratory WBC 8.2 X10^3/uL (3.6-10.0) 08/22/17 05:25 RBC 3.03 X10^6/uL (3.5-5.4) L 08/22/17 05:25 Hgb 8.9 g/dL (12.0-16.0) L 08/22/17 05:25 Hct 26.5 % (36.0-47.0) L 08/22/17 05:25 MCV 87.5 fL (80.0-100.0) 08/22/17 05:25 MCH 29.5 pg (27.0-34.0) 08/22/17 05:25 MCHC 33.7 g/dL (33.0-35.0) 08/22/17 05:25 RDW 17.2 % (11.6-16.5) H 08/22/17 05:25 Plt Count 246 X10^3/uL (150.0-450.0) 08/22/17 05:25 Plt Count Comment Adequate (ADEQUATE) 08/20/17 04:50 MPV 9.0 fL (7.4-11.0) 08/22/17 05:25 Neut % (Auto) 41.5 % (42.0-75.0) L 08/22/17 05:25 Lymph % (Auto) 46.8 % (21.0-51.0) 08/22/17 05:25 [place] % (Auto) 10.3 % (0.0-13.0) 08/22/17 05:25 Eos % (Auto) 1.1 % (0.9-2.9) 08/22/17 05:25 Baso % (Auto) 0.3 % (0.2-1.0) 08/22/17 05:25 Neut # (Auto) 3.4 x10^3/uL (2.2-4.8) 08/22/17 05:25 Lymph # (Auto) 3.8 X10^3/uL (1.3-2.9) H 08/22/17 05:25 [place] # (Auto) 0.8 x10^3/uL (0.3-0.8) 08/22/17 05:25 Eos # (Auto) 0.1 x10^3/uL (0.0-0.2) 08/22/17 05:25 Baso # (Auto) 0.0 X10^3/uL (0.0-0.1) 08/22/17 05:25 Absolute Nucleated RBC 0.1 /100WBC 08/22/17 05:25 Total Counted 100 08/20/17 04:50 Neutrophils % (Manual) 21 % (39-76) L 08/20/17 04:50 Band Neutrophils % 1 % (0-10) 08/20/17 04:50 Lymphocytes % (Manual) 66 % (13-43) H 08/20/17 04:50 Monocytes % (Manual) 10 % (4-9) H 08/20/17 04:50 Eosinophils % (Manual) 2 % (0-6) 08/20/17 04:50 Basophils % (Manual) 1 % (0-1) 08/18/17 11:03 Atypical Lymphocytes 8 08/18/17 01:50 Plt Morphology Comment Normal (NORMAL) 08/20/17 04:50 RBC Morphology Abnormal (NORMAL) A 08/20/17 04:50 Hypochromasia Slight A 08/20/17 04:50 Anisocytosis Slight A 08/18/17 01:50 Target Cells Present 08/18/17 01:50 Sodium 138 mmol/L (136-145) 08/22/17 05:25 Corrected Sodium TNP 08/22/17 05:25 Potassium 3.9 mmol/L (3.5-5.1) 08/22/17 05:25 Chloride 101 mmol/L (98-107) 08/22/17 05:25 Carbon Dioxide 25.2 mmol/L (21-32) 08/22/17 05:25 BUN 32 mg/dL (7-18) H 08/22/17 05:25 Creatinine 1.51 mg/dL (0.55-1.02) H 08/22/17 05:25 Est GFR (MDRD) Af Amer 42 (>60) L 08/22/17 05:25 Est GFR (MDRD) Non-Af 35 (>60) L 08/22/17 05:25 Glucose 104 mg/dL (65-99) H 08/22/17 05:25 Lactic Acid 1.4 mmol/L (0.4-2.0) 08/18/17 01:50 Calcium 8.9 mg/dL (8.5-10.1) 08/22/17 05:25 Corrected Calcium 9.5 mg/dL (8.5-10.1) 08/22/17 05:25 Magnesium 2.6 mg/dL (1.7-2.9) 08/19/17 06:05 Total Bilirubin 0.30 mg/dL (0.2-1.0) 08/22/17 05:25 AST 20 Units/L (15-37) 08/22/17 05:25 ALT 12 Units/L (12-78) 08/22/17 05:25 Alkaline Phosphatase 79 Units/L (46-116) 08/22/17 05:25 Creatine Kinase 59 Units/L (26-192) 08/18/17 11:03 CK-MB (CK-2) 1.7 ng/mL (0-4.0) 08/18/17 11:03 CK/CKMB % Calc 2.9 % (<4) 08/18/17 11:03 Troponin I 0.17 ng/mL (0-1.5) 08/18/17 11:03 C-Reactive Protein 26.50 mg/L (0-3.0) H 08/18/17 01:50 Total Protein 8.2 g/dL (6.4-8.2) 08/22/17 05:25 Albumin 3.3 g/dL (3.4-5.0) L 08/22/17 05:25 Globulin 4.9 g/dL (2.5-4.5) H 08/22/17 05:25 Albumin/Globulin Ratio 0.7 Ratio (1.1-2.1) L 08/22/17 05:25 Specimen Type Catherized urine 08/18/17 05:21 Urine Color Yellow (YELLOW) 08/18/17 05:21 Urine Appearance Clear (CLEAR) 08/18/17 05:21 Urine pH 6.0 (5.0 - 8.0) 08/18/17 05:21 Ur Specific [place] 1.010 (1.000-1.030) 08/18/17 05:21 Urine Protein 3+ (NEGATIVE) 08/18/17 05:21 Urine Glucose (UA) Negative (NEGATIVE) 08/18/17 05:21 Urine Ketones Negative (NEGATIVE) 08/18/17 05:21 Urine Occult Blood 3+ (NEGATIVE) 08/18/17 05:21 Urine Nitrite Negative (NEGATIVE) 08/18/17 05:21 Urine Bilirubin Negative (NEGATIVE) 08/18/17 05:21 Urine Urobilinogen Normal (NORMAL) 08/18/17 05:21 Ur Leukocyte Esterase Negative (NEGATIVE) 08/18/17 05:21 Urine RBC 3-5 /HPF (NONE SEEN) 08/18/17 05:21 Urine WBC None seen /HPF (NONE SEEN) 08/18/17 05:21 Ur Squamous Epith Cells Rare /HPF (NEGATIVE) 08/18/17 05:21 Amorphous Sediment 2+ /HPF (NEGATIVE) 08/18/17 05:21 Urine Bacteria Negative /HPF (NEGATIVE) 08/18/17 05:21 Ur Culture Indicated? No/not indicated 08/18/17 05:21 - Plan (1) Pneumonia Status: Acute Qualifiers: Pneumonia type: due to unspecified organism Laterality: right Lung location: lower lobe of lung Qualified Code(s): J18.1 - Lobar pneumonia, unspecified organism Plan: levaquin 750mg iv q48h, respiratory tx, supplemental oxygen, robitussin, tussionex, continue to monitor (2) CHF (congestive heart failure) Status: Acute Qualifiers: Heart failure type: combined systolic and diastolic Heart failure chronicity: acute on chronic Qualified Code(s): I50.43 - Acute on chronic combined systolic (congestive) and diastolic (congestive) heart failure Plan: respiratory tx, supplemental oxygen, bumex, continue to monitor (3) Hypertension Status: Acute Qualifiers: Hypertension type: essential hypertension Qualified Code(s): I10 - Essential (primary) hypertension Plan: losartan 50mg po daily, norvasc 5mg po daily, continue to monitor
--- NOTE | 2017-08-22 18:02 | PCM.PROG ---
Progress Note - Progress Note for Day of Date: 08/22/17 - Subjective Subjective: 87 wf admitted on 08/18 with pneumonia. Pt is currently on iv atbx and continues with diffuse rhonchi, decrease lung bases. pt more awake and alert this am, co left upper abdominal pain. pt also co poor appetite. pt had ct chest on 08/21 with pulmonary effusion, consult resp for bipap, will continue resp therapy and supplemental o2, encourage pulmonary toileting, diuretics I & Os cardiac monitoring - Past Medical Family Social History Past Med/Fam/Surg Hx: No changes since H&P Allergies: Allergies atorvastatin [From Lipitor] Adverse Reaction (Verified 08/18/17 01:37) cisapride [From Propulsid] Adverse Reaction (Verified 08/18/17 01:37) clindamycin Adverse Reaction (Verified 08/18/17 01:37) codeine Adverse Reaction (Verified 08/18/17 01:37) diazepam [From Valium] Adverse Reaction (Verified 08/18/17 01:37) famciclovir [From Famvir] Adverse Reaction (Verified 08/18/17 01:37) furosemide [From Lasix] Adverse Reaction (Verified 08/18/17 01:37) hydroxyzine [From Atarax] Adverse Reaction (Verified 08/18/17 01:37) lincomycin [From Lincocin] Adverse Reaction (Verified 08/18/17 01:37) Penicillins Adverse Reaction (Verified 08/18/17 01:37) prednisone Adverse Reaction (Verified 08/18/17 01:37) shellfish derived Adverse Reaction (Verified 08/18/17 01:37) Sulfa (Sulfonamide Antibiotics) [SULFA] Adverse Reaction (Verified 08/18/17 01: 37) - Review of Systems ROS: No change since H&P - Vital Signs and I&O's Vital Signs: Temperature 98.4 F Pulse Rate [Right Brachial] 87 Pulse Rate [Apical] 84 Pulse Rate 88 Respiratory Rate 20 Blood Pressure [Right Arm] 125/58 Blood Pressure 139/71 O2 Sat by Pulse Oximetry 96 Intake and Output: Intake & Output 08/20/17 08/21/17 08/22/17 08/23/17 11:59 11:59 11:59 11:59 Intake Total 1451 1647 900 560 Output Total 1075 2150 1975 800 Balance 135 -330 -4978 -666 - Physical Exam Oriented: Normal Eyes: Normal Ear: Normal Nose: Normal Throat: Normal Respiratory: Diminished, Rhonchi Cardiovascular: Normal : Normal Auscultation: Bowel Sounds: Normal Tenderness: Normal Skin: Normal Musculoskeletal: Normal Psychiatric: Normal Mood Description: Calm Affect: Normal Speech Pattern: Clear, Appropriate - Laboratory and Diagnostics Result Diagrams: 08/22/17 05:25 08/22/17 05:25 Labs: 08/19/17 13:40 Sputum - Expectorated Sputum Sputum Culture - Final 08/19/17 13:40 Sputum - Expectorated Sputum - Final 08/18/17 01:50 Blood Blood Culture - Preliminary 08/18/17 01:40 Blood Blood Culture - Preliminary Laboratory WBC 8.2 X10^3/uL (3.6-10.0) 08/22/17 05:25 RBC 3.03 X10^6/uL (3.5-5.4) L 08/22/17 05:25 Hgb 8.9 g/dL (12.0-16.0) L 08/22/17 05:25 Hct 26.5 % (36.0-47.0) L 08/22/17 05:25 MCV 87.5 fL (80.0-100.0) 08/22/17 05:25 MCH 29.5 pg (27.0-34.0) 08/22/17 05:25 MCHC 33.7 g/dL (33.0-35.0) 08/22/17 05:25 RDW 17.2 % (11.6-16.5) H 08/22/17 05:25 Plt Count 246 X10^3/uL (150.0-450.0) 08/22/17 05:25 Plt Count Comment Adequate (ADEQUATE) 08/20/17 04:50 MPV 9.0 fL (7.4-11.0) 08/22/17 05:25 Neut % (Auto) 41.5 % (42.0-75.0) L 08/22/17 05:25 Lymph % (Auto) 46.8 % (21.0-51.0) 08/22/17 05:25 Jerome % (Auto) 10.3 % (0.0-13.0) 08/22/17 05:25 Eos % (Auto) 1.1 % (0.9-2.9) 08/22/17 05:25 Baso % (Auto) 0.3 % (0.2-1.0) 08/22/17 05:25 Neut # (Auto) 3.4 x10^3/uL (2.2-4.8) 08/22/17 05:25 Lymph # (Auto) 3.8 X10^3/uL (1.3-2.9) H 08/22/17 05:25 Jerome # (Auto) 0.8 x10^3/uL (0.3-0.8) 08/22/17 05:25 Eos # (Auto) 0.1 x10^3/uL (0.0-0.2) 08/22/17 05:25 Baso # (Auto) 0.0 X10^3/uL (0.0-0.1) 08/22/17 05:25 Absolute Nucleated RBC 0.1 /100WBC 08/22/17 05:25 Total Counted 100 08/20/17 04:50 Neutrophils % (Manual) 21 % (39-76) L 08/20/17 04:50 Band Neutrophils % 1 % (0-10) 08/20/17 04:50 Lymphocytes % (Manual) 66 % (13-43) H 08/20/17 04:50 Monocytes % (Manual) 10 % (4-9) H 08/20/17 04:50 Eosinophils % (Manual) 2 % (0-6) 08/20/17 04:50 Basophils % (Manual) 1 % (0-1) 08/18/17 11:03 Atypical Lymphocytes 8 08/18/17 01:50 Plt Morphology Comment Normal (NORMAL) 08/20/17 04:50 RBC Morphology Abnormal (NORMAL) A 08/20/17 04:50 Hypochromasia Slight A 08/20/17 04:50 Anisocytosis Slight A 08/18/17 01:50 Target Cells Present 08/18/17 01:50 Sodium 138 mmol/L (136-145) 08/22/17 05:25 Corrected Sodium TNP 08/22/17 05:25 Potassium 3.9 mmol/L (3.5-5.1) 08/22/17 05:25 Chloride 101 mmol/L (98-107) 08/22/17 05:25 Carbon Dioxide 25.2 mmol/L (21-32) 08/22/17 05:25 BUN 32 mg/dL (7-18) H 08/22/17 05:25 Creatinine 1.51 mg/dL (0.55-1.02) H 08/22/17 05:25 Est GFR (MDRD) Af Amer 42 (>60) L 08/22/17 05:25 Est GFR (MDRD) Non-Af 35 (>60) L 08/22/17 05:25 Glucose 104 mg/dL (65-99) H 08/22/17 05:25 Lactic Acid 1.4 mmol/L (0.4-2.0) 08/18/17 01:50 Calcium 8.9 mg/dL (8.5-10.1) 08/22/17 05:25 Corrected Calcium 9.5 mg/dL (8.5-10.1) 08/22/17 05:25 Magnesium 2.6 mg/dL (1.7-2.9) 08/19/17 06:05 Total Bilirubin 0.30 mg/dL (0.2-1.0) 08/22/17 05:25 AST 20 Units/L (15-37) 08/22/17 05:25 ALT 12 Units/L (12-78) 08/22/17 05:25 Alkaline Phosphatase 79 Units/L (46-116) 08/22/17 05:25 Creatine Kinase 59 Units/L (26-192) 08/18/17 11:03 CK-MB (CK-2) 1.7 ng/mL (0-4.0) 08/18/17 11:03 CK/CKMB % Calc 2.9 % (<4) 08/18/17 11:03 Troponin I 0.17 ng/mL (0-1.5) 08/18/17 11:03 C-Reactive Protein 26.50 mg/L (0-3.0) H 08/18/17 01:50 Total Protein 8.2 g/dL (6.4-8.2) 08/22/17 05:25 Albumin 3.3 g/dL (3.4-5.0) L 08/22/17 05:25 Globulin 4.9 g/dL (2.5-4.5) H 08/22/17 05:25 Albumin/Globulin Ratio 0.7 Ratio (1.1-2.1) L 08/22/17 05:25 Specimen Type Catherized urine 08/18/17 05:21 Urine Color Yellow (YELLOW) 08/18/17 05:21 Urine Appearance Clear (CLEAR) 08/18/17 05:21 Urine pH 6.0 (5.0 - 8.0) 08/18/17 05:21 Ur Specific [place] 1.010 (1.000-1.030) 08/18/17 05:21 Urine Protein 3+ (NEGATIVE) 08/18/17 05:21 Urine Glucose (UA) Negative (NEGATIVE) 08/18/17 05:21 Urine Ketones Negative (NEGATIVE) 08/18/17 05:21 Urine Occult Blood 3+ (NEGATIVE) 08/18/17 05:21 Urine Nitrite Negative (NEGATIVE) 08/18/17 05:21 Urine Bilirubin Negative (NEGATIVE) 08/18/17 05:21 Urine Urobilinogen Normal (NORMAL) 08/18/17 05:21 Ur Leukocyte Esterase Negative (NEGATIVE) 08/18/17 05:21 Urine RBC 3-5 /HPF (NONE SEEN) 08/18/17 05:21 Urine WBC None seen /HPF (NONE SEEN) 08/18/17 05:21 Ur Squamous Epith Cells Rare /HPF (NEGATIVE) 08/18/17 05:21 Amorphous Sediment 2+ /HPF (NEGATIVE) 08/18/17 05:21 Urine Bacteria Negative /HPF (NEGATIVE) 08/18/17 05:21 Ur Culture Indicated? No/not indicated 08/18/17 05:21 - Plan (1) Pneumonia Status: Acute Qualifiers: Pneumonia type: due to unspecified organism Laterality: right Lung location: lower lobe of lung Qualified Code(s): J18.1 - Lobar pneumonia, unspecified organism Plan: levaquin 750mg iv q48h, respiratory tx, supplemental oxygen, robitussin, tussionex, continue to monitor (2) CHF (congestive heart failure) Status: Acute Qualifiers: Heart failure type: combined systolic and diastolic Heart failure chronicity: acute on chronic Qualified Code(s): I50.43 - Acute on chronic combined systolic (congestive) and diastolic (congestive) heart failure Plan: respiratory tx, supplemental oxygen, bumex, continue to monitor (3) Hypertension Status: Acute Qualifiers: Hypertension type: essential hypertension Qualified Code(s): I10 - Essential (primary) hypertension Plan: losartan 50mg po daily, norvasc 5mg po daily, continue to monitor
[2017-08-22] MEDS: ZyrTEC TAB 10 MG PO SCH (21:03)
[2017-08-22] MEDS: COLACE CAP 100 MG PO SCH (21:04)
[2017-08-22] MEDS: MEGACE PO SCH ×2 (21:05→21:08)
[2017-08-22] MEDS: NORVASC TAB 5 MG PO SCH (21:05)
[2017-08-22] MEDS: ZOLOFT PO SCH (21:05)
[2017-08-22] MEDS: SOLU-Medrol 40 MG VIAL IVP SCH ×2 (21:42)
[2017-08-23] MEDS: DUONEB 0.5 MG/3 MG NEB SCH ×7 (01:36→21:21)
[2017-08-23] MEDS: NORCO 10/325 TAB PO SCH ×5 (04:10→20:34)
[2017-08-23] MEDS: NS 1000 ML 1,000 ML IV SCH ×2 (04:11→20:43)
[2017-08-23] MEDS: XANAX PO SCH ×5 (05:10→23:28)
[2017-08-23] MEDS: SOLU-Medrol 40 MG VIAL IVP SCH ×4 (05:10→23:29)
[2017-08-23 06:12] LABS: BASOPHILS # (AUTO) 0.1 X10^3/uL (0.0-0.1); HEMATOCRIT 27.1 % (36.0-47.0); HEMOGLOBIN 9.3 g/dL (12.0-16.0); LYMPHOCYTES # (AUTO) 1.6 X10^3/uL (1.3-2.9); LYMPHOCYTES % (AUTO) 29.4 % (21.0-51.0); MEAN CORPUSCULAR HEMOGLOBIN 29.9 pg (27.0-34.0); MEAN CORPUSCULAR HGB CONC 34.3 g/dL (33.0-35.0); MEAN CORPUSCULAR VOLUME 87.2 fL (80.0-100.0); MEAN PLATELET VOLUME 9.1 fL (7.4-11.0); MONOCYTES # (AUTO) 0 x10^3/uL (0.3-0.8); MONOCYTES % (AUTO) 0.8 % (0.0-13.0); NEUTROPHILS # (AUTO) 3.9 x10^3/uL (2.2-4.8); NEUTROPHILS % (AUTO) 68.8 % (42.0-75.0); PLATELET COUNT 269 X10^3/uL (150.0-450.0); RED BLOOD COUNT 3.11 X10^6/uL (3.5-5.4); RED CELL DISTRIBUTION WIDTH 17.1 % (11.6-16.5); WHITE BLOOD COUNT 5.6 X10^3/uL (3.6-10.0)
[2017-08-23 06:36] LABS: ALBUMIN 3.3 g/dL (3.4-5.0); CALCIUM 8.8 mg/dL (8.5-10.1); CARBON DIOXIDE 27.1 mmol/L (21-32); COR CA(FOR HYPOALB) 9.4 mg/dL (8.5-10.1); CREATININE 1.66 mg/dL (0.55-1.02); TOTAL PROTEIN 8.5 g/dL (6.4-8.2)
[2017-08-23] MEDS: MUCOMYST 20% 200 MG/ML NEB SCH ×5 (08:09→21:21)
[2017-08-23] MEDS: COZAAR PO SCH (09:38)
[2017-08-23] MEDS: PATIENT'S HOME MEDICATION (Lubiprostone [Amitiza] 8 MCG) PO SCH ×2 (09:38→20:33)
[2017-08-23] MEDS: PATIENT'S HOME MEDICATION (Amino Acids/Protein Hydrolys [Pro-Stat Awc Liquid Packet] 30 ML PO SCH ×2 (09:38→23:27)
[2017-08-23] MEDS: MEGACE PO SCH ×2 (09:39→20:34)
[2017-08-23] MEDS: MIRALAX POWDER (1 DOSE 17GM) PO SCH ×2 (09:39→20:36)
[2017-08-23] MEDS: VITAMIN C PO SCH ×2 (09:39→20:35)
[2017-08-23] MEDS: TAB-A-VITE PO SCH (09:40)
[2017-08-23] MEDS: ROBITUSSIN DM PO SCH ×4 (09:40→20:36)
[2017-08-23] MEDS: BUMEX INJ 1 MG VIAL IVP SCH ×2 (09:41→20:36)
[2017-08-23] MEDS: PROTONIX INJ 40 MG VIAL IVP SCH ×2 (09:41→20:36)
[2017-08-23] MEDS: NYSTATIN SUSP PO SCH ×4 (09:41→20:36)
--- NOTE | 2017-08-23 11:54 | RAD ---
History: CHF, pneumonia Study: Chest single view Findings: Single AP portable examination of chest is obtained and comparison made to previous chest r adiograph and CT of the chest dated 08/21/2017. There is hazy density from the right mid lung field c audally obliterating the right heart border and right hemidiaphragm as before. This is known to repre sent a combination of a moderate to large size pleural effusion and underlying right middle and lower lobe atelectasis. There is also hazy density at the left lung base obscuring the distal descending a mary and diaphragm consistent with effusion and atelectasis as well. Impression: No significant interval change is demonstrated. Reported By:
[2017-08-23] MEDS: ZyrTEC TAB 10 MG PO SCH (20:30)
[2017-08-23] MEDS: ZOLOFT PO SCH (20:33)
[2017-08-23] MEDS: NORVASC TAB 5 MG PO SCH (20:35)
[2017-08-23] MEDS: COLACE CAP 100 MG PO SCH (20:36)
[2017-08-24] MEDS: DUONEB 0.5 MG/3 MG NEB SCH ×6 (01:03→20:43)
[2017-08-24] MEDS: NORCO 10/325 TAB PO SCH ×4 (03:00→20:57)
[2017-08-24] MEDS: TUSSIONEX PENNKINETIC SUSP PO PRN ×2 (04:56→16:45)
[2017-08-24] MEDS: XANAX PO SCH ×3 (05:40→20:59)
[2017-08-24] MEDS: SOLU-Medrol 40 MG VIAL IVP SCH ×3 (05:40→20:59)
[2017-08-24] MEDS: MUCOMYST 20% 200 MG/ML NEB SCH ×4 (09:03→20:43)
[2017-08-24 09:34] LABS: BASOPHILS % (AUTO) 0.1 % (0.2-1.0); HEMATOCRIT 27.2 % (36.0-47.0); HEMOGLOBIN 9.2 g/dL (12.0-16.0); LYMPHOCYTES # (AUTO) 1.5 X10^3/uL (1.3-2.9); LYMPHOCYTES % (AUTO) 28.8 % (21.0-51.0); MEAN CORPUSCULAR HEMOGLOBIN 29.6 pg (27.0-34.0); MEAN PLATELET VOLUME 8.9 fL (7.4-11.0); MONOCYTES # (AUTO) 0.3 x10^3/uL (0.3-0.8); NEUTROPHILS # (AUTO) 3.5 x10^3/uL (2.2-4.8); NEUTROPHILS % (AUTO) 66.1 % (42.0-75.0); PLATELET COUNT 281 X10^3/uL (150.0-450.0); RED BLOOD COUNT 3.13 X10^6/uL (3.5-5.4); RED CELL DISTRIBUTION WIDTH 17.3 % (11.6-16.5); WHITE BLOOD COUNT 5.2 X10^3/uL (3.6-10.0)
[2017-08-24] MEDS: PATIENT'S HOME MEDICATION (Amino Acids/Protein Hydrolys [Pro-Stat Awc Liquid Packet] 30 ML PO SCH ×2 (09:36→21:04)
[2017-08-24] MEDS: PROTONIX INJ 40 MG VIAL IVP SCH ×2 (09:37→20:58)
[2017-08-24] MEDS: NYSTATIN SUSP PO SCH ×4 (09:37→20:58)
[2017-08-24] MEDS: MIRALAX POWDER (1 DOSE 17GM) PO SCH (09:37)
[2017-08-24] MEDS: VITAMIN C PO SCH ×2 (09:37→20:54)
[2017-08-24] MEDS: TAB-A-VITE PO SCH (09:37)
[2017-08-24] MEDS: ROBITUSSIN DM PO SCH ×4 (09:37→20:58)
[2017-08-24] MEDS: MEGACE PO SCH ×2 (09:38→21:00)
[2017-08-24] MEDS: COZAAR PO SCH (09:38)
[2017-08-24] MEDS: LEVAQUIN PREMIX IV 750 MG 750 MG/150 ML BAG IV SCH (09:38)
[2017-08-24] MEDS: PATIENT'S HOME MEDICATION (Lubiprostone [Amitiza] 8 MCG) PO SCH ×2 (09:38→21:05)
[2017-08-24] MEDS: BUMEX INJ 1 MG VIAL IVP SCH (09:38)
[2017-08-24 09:54] LABS: ALANINE AMINOTRANSFERASE 17 Units/L (12-78); ALBUMIN 3.4 g/dL (3.4-5.0); ALKALINE PHOSPHATASE 73 Units/L (46-116); ASPARTATE AMINO TRANSFERASE 23 Units/L (15-37); BLOOD UREA NITROGEN 33 mg/dL (7-18); CARBON DIOXIDE 26.5 mmol/L (21-32); CHLORIDE 99 mmol/L (98-107); COR NA(FOR HYPERGLY) 144 mmol/L (136-145); CREATININE 1.84 mg/dL (0.55-1.02); SODIUM 140 mmol/L (136-145); TOTAL PROTEIN 8.8 g/dL (6.4-8.2); eGFR BLACK RACES 33 (>60); eGFR NON BLACK RACES 28 (>60)
[2017-08-24] MEDS: MUCINEX DM PO SCH ×2 (12:07→20:55)
--- NOTE | 2017-08-24 13:30 | PCM.PROG ---
Progress Note - Progress Note for Day of Date: 08/24/17 - Subjective Subjective: 87 wf admitted on 08/18 with pneumonia. Pt is currently on iv atbx and continues with a productive cough and shortness of breath. bilateral lungs are noted with diffuse rhonchi, decrease lung bases. Her vitals are 98.3, 103, 20, 91%-176/79. Labs revealed hgb 9.3, hct 27.2, potassium 3.1, bun 33, creatinine 1.84, glucose 252, total protein 8.8. Otherwise, she is hemodynamically stable. Today, we will continue with iv antibiotics, bipap, will continue resp therapy and supplemental o2, encourage pulmonary toileting, diuretics I & Os cardiac monitoring. We will start Mucinex dm 2 tablets daily and the smart vest. We will follow up with am labs and chest xray and continue to monitor patient. - Past Medical Family Social History Past Med/Fam/Surg Hx: No changes since H&P Allergies: Allergies atorvastatin [From Lipitor] Adverse Reaction (Verified 08/18/17 01:37) cisapride [From Propulsid] Adverse Reaction (Verified 08/18/17 01:37) clindamycin Adverse Reaction (Verified 08/18/17 01:37) codeine Adverse Reaction (Verified 08/18/17 01:37) diazepam [From Valium] Adverse Reaction (Verified 08/18/17 01:37) famciclovir [From Famvir] Adverse Reaction (Verified 08/18/17 01:37) furosemide [From Lasix] Adverse Reaction (Verified 08/18/17 01:37) hydroxyzine [From Atarax] Adverse Reaction (Verified 08/18/17 01:37) lincomycin [From Lincocin] Adverse Reaction (Verified 08/18/17 01:37) Penicillins Adverse Reaction (Verified 08/18/17 01:37) prednisone Adverse Reaction (Verified 08/18/17 01:37) shellfish derived Adverse Reaction (Verified 08/18/17 01:37) Sulfa (Sulfonamide Antibiotics) [SULFA] Adverse Reaction (Verified 08/18/17 01: 37) - Review of Systems ROS: No change since H&P - Vital Signs and I&O's Vital Signs: Temperature 99.1 F Pulse Rate [Right Brachial] 105 Pulse Rate [Apical] 84 Pulse Rate 102 Respiratory Rate 20 Blood Pressure [Right Arm] 172/75 Blood Pressure 139/71 O2 Sat by Pulse Oximetry 90 Intake and Output: Intake & Output 08/22/17 08/23/17 08/24/17 08/25/17 11:59 11:59 11:59 11:59 Intake Total 900 1125 460 Output Total 5215 4585 1700 Balance -2778 -477 -5260 - Physical Exam Oriented: Normal Eyes: Normal Ear: Normal Nose: Normal Throat: Normal Respiratory: Diminished, Rhonchi Cardiovascular: Normal : Normal Auscultation: Bowel Sounds: Normal Tenderness: Normal Skin: Normal Musculoskeletal: Normal Psychiatric: Normal Mood Description: Calm Affect: Normal Speech Pattern: Clear, Appropriate - Laboratory and Diagnostics Result Diagrams: 08/24/17 09:20 08/24/17 09:20 Labs: 08/18/17 01:40 Blood Blood Culture - Final 08/18/17 01:50 Blood Blood Culture - Final 08/19/17 13:40 Sputum - Expectorated Sputum Sputum Culture - Final 08/19/17 13:40 Sputum - Expectorated Sputum - Final Laboratory WBC 5.2 X10^3/uL (3.6-10.0) 08/24/17 09:20 RBC 3.13 X10^6/uL (3.5-5.4) L 08/24/17 09:20 Hgb 9.2 g/dL (12.0-16.0) L 08/24/17 09:20 Hct 27.2 % (36.0-47.0) L 08/24/17 09:20 MCV 87.0 fL (80.0-100.0) 08/24/17 09:20 MCH 29.6 pg (27.0-34.0) 08/24/17 09:20 MCHC 34.0 g/dL (33.0-35.0) 08/24/17 09:20 RDW 17.3 % (11.6-16.5) H 08/24/17 09:20 Plt Count 281 X10^3/uL (150.0-450.0) 08/24/17 09:20 Plt Count Comment Adequate (ADEQUATE) 08/20/17 04:50 MPV 8.9 fL (7.4-11.0) 08/24/17 09:20 Neut % (Auto) 66.1 % (42.0-75.0) 08/24/17 09:20 Lymph % (Auto) 28.8 % (21.0-51.0) 08/24/17 09:20 Dickson % (Auto) 5.0 % (0.0-13.0) 08/24/17 09:20 Eos % (Auto) 0.0 % (0.9-2.9) L 08/24/17 09:20 Baso % (Auto) 0.1 % (0.2-1.0) L 08/24/17 09:20 Neut # (Auto) 3.5 x10^3/uL (2.2-4.8) 08/24/17 09:20 Lymph # (Auto) 1.5 X10^3/uL (1.3-2.9) 08/24/17 09:20 Dickson # (Auto) 0.3 x10^3/uL (0.3-0.8) 08/24/17 09:20 Eos # (Auto) 0.0 x10^3/uL (0.0-0.2) 08/24/17 09:20 Baso # (Auto) 0.0 X10^3/uL (0.0-0.1) 08/24/17 09:20 Absolute Nucleated RBC 0.0 /100WBC 08/24/17 09:20 Total Counted 100 08/20/17 04:50 Neutrophils % (Manual) 21 % (39-76) L 08/20/17 04:50 Band Neutrophils % 1 % (0-10) 08/20/17 04:50 Lymphocytes % (Manual) 66 % (13-43) H 08/20/17 04:50 Monocytes % (Manual) 10 % (4-9) H 08/20/17 04:50 Eosinophils % (Manual) 2 % (0-6) 08/20/17 04:50 Basophils % (Manual) 1 % (0-1) 08/18/17 11:03 Atypical Lymphocytes 8 08/18/17 01:50 Plt Morphology Comment Normal (NORMAL) 08/20/17 04:50 RBC Morphology Abnormal (NORMAL) A 08/20/17 04:50 Hypochromasia Slight A 08/20/17 04:50 Anisocytosis Slight A 08/18/17 01:50 Target Cells Present 08/18/17 01:50 Sodium 140 mmol/L (136-145) 08/24/17 09:20 Corrected Sodium 144 mmol/L (136-145) 08/24/17 09:20 Potassium 3.1 mmol/L (3.5-5.1) L 08/24/17 09:20 Chloride 99 mmol/L (98-107) 08/24/17 09:20 Carbon Dioxide 26.5 mmol/L (21-32) 08/24/17 09:20 BUN 33 mg/dL (7-18) H 08/24/17 09:20 Creatinine 1.84 mg/dL (0.55-1.02) H 08/24/17 09:20 Est GFR (MDRD) Af Amer 33 (>60) L 08/24/17 09:20 Est GFR (MDRD) Non-Af 28 (>60) L 08/24/17 09:20 Glucose 252 mg/dL (65-99) H 08/24/17 09:20 Lactic Acid 1.4 mmol/L (0.4-2.0) 08/18/17 01:50 Calcium 9.0 mg/dL (8.5-10.1) 08/24/17 09:20 Corrected Calcium TNP 08/24/17 09:20 Magnesium 2.6 mg/dL (1.7-2.9) 08/19/17 06:05 Total Bilirubin 0.30 mg/dL (0.2-1.0) 08/24/17 09:20 AST 23 Units/L (15-37) 08/24/17 09:20 ALT 17 Units/L (12-78) 08/24/17 09:20 Alkaline Phosphatase 73 Units/L (46-116) 08/24/17 09:20 Creatine Kinase 59 Units/L (26-192) 08/18/17 11:03 CK-MB (CK-2) 1.7 ng/mL (0-4.0) 08/18/17 11:03 CK/CKMB % Calc 2.9 % (<4) 08/18/17 11:03 Troponin I 0.17 ng/mL (0-1.5) 08/18/17 11:03 C-Reactive Protein 26.50 mg/L (0-3.0) H 08/18/17 01:50 Total Protein 8.8 g/dL (6.4-8.2) H 08/24/17 09:20 Albumin 3.4 g/dL (3.4-5.0) 08/24/17 09:20 Globulin 5.4 g/dL (2.5-4.5) H 08/24/17 09:20 Albumin/Globulin Ratio 0.6 Ratio (1.1-2.1) L 08/24/17 09:20 Specimen Type Catherized urine 08/18/17 05:21 Urine Color Yellow (YELLOW) 08/18/17 05:21 Urine Appearance Clear (CLEAR) 08/18/17 05:21 Urine pH 6.0 (5.0 - 8.0) 08/18/17 05:21 Ur Specific [place] 1.010 (1.000-1.030) 08/18/17 05:21 Urine Protein 3+ (NEGATIVE) 08/18/17 05:21 Urine Glucose (UA) Negative (NEGATIVE) 08/18/17 05:21 Urine Ketones Negative (NEGATIVE) 08/18/17 05:21 Urine Occult Blood 3+ (NEGATIVE) 08/18/17 05:21 Urine Nitrite Negative (NEGATIVE) 08/18/17 05:21 Urine Bilirubin Negative (NEGATIVE) 08/18/17 05:21 Urine Urobilinogen Normal (NORMAL) 08/18/17 05:21 Ur Leukocyte Esterase Negative (NEGATIVE) 08/18/17 05:21 Urine RBC 3-5 /HPF (NONE SEEN) 08/18/17 05:21 Urine WBC None seen /HPF (NONE SEEN) 08/18/17 05:21 Ur Squamous Epith Cells Rare /HPF (NEGATIVE) 08/18/17 05:21 Amorphous Sediment 2+ /HPF (NEGATIVE) 08/18/17 05:21 Urine Bacteria Negative /HPF (NEGATIVE) 08/18/17 05:21 Ur Culture Indicated? No/not indicated 08/18/17 05:21 - Plan (1) Pneumonia Status: Acute Qualifiers: Pneumonia type: due to unspecified organism Laterality: right Lung location: lower lobe of lung Qualified Code(s): J18.1 - Lobar pneumonia, unspecified organism Plan: levaquin 750mg iv q48h, respiratory tx, supplemental oxygen, robitussin, tussionex, continue to monitor (2) CHF (congestive heart failure) Status: Acute Qualifiers: Heart failure type: combined systolic and diastolic Heart failure chronicity: acute on chronic Qualified Code(s): I50.43 - Acute on chronic combined systolic (congestive) and diastolic (congestive) heart failure Plan: respiratory tx, supplemental oxygen, bumex, continue to monitor (3) SOB (shortness of breath) Status: Acute Plan: respiratory treatments, supplemental oxygen, continue to monitor (4) Hypertension Status: Acute Qualifiers: Hypertension type: essential hypertension Qualified Code(s): I10 - Essential (primary) hypertension Plan: losartan 50mg po daily, norvasc 5mg po daily, continue to monitor
[2017-08-24] MEDS: NS 1000 ML 1,000 ML IV SCH (18:21)
[2017-08-24] MEDS: ZOLOFT PO SCH (20:55)
[2017-08-24] MEDS: COLACE CAP 100 MG PO SCH (20:56)
[2017-08-24] MEDS: ZyrTEC TAB 10 MG PO SCH (20:56)
[2017-08-24] MEDS: NORVASC TAB 5 MG PO SCH (20:57)
[2017-08-25] MEDS: DUONEB 0.5 MG/3 MG NEB SCH ×4 (00:05→12:34)
[2017-08-25] MEDS: NORCO 10/325 TAB PO SCH ×4 (02:06→21:36)
[2017-08-25] MEDS: NS 1000 ML 1,000 ML IV SCH (03:34)
[2017-08-25 06:05] LABS: BASOPHILS # (AUTO) 0.1 X10^3/uL (0.0-0.1); BASOPHILS % (AUTO) 0.4 % (0.2-1.0); HEMATOCRIT 25.9 % (36.0-47.0); HEMOGLOBIN 8.9 g/dL (12.0-16.0); LYMPHOCYTES # (AUTO) 1.7 X10^3/uL (1.3-2.9); LYMPHOCYTES % (AUTO) 14.7 % (21.0-51.0); MEAN CORPUSCULAR HEMOGLOBIN 29.6 pg (27.0-34.0); MEAN CORPUSCULAR HGB CONC 34.4 g/dL (33.0-35.0); MEAN CORPUSCULAR VOLUME 85.9 fL (80.0-100.0); MEAN PLATELET VOLUME 8.7 fL (7.4-11.0); MONOCYTES # (AUTO) 0.9 x10^3/uL (0.3-0.8); NEUTROPHILS # (AUTO) 9.1 x10^3/uL (2.2-4.8); NEUTROPHILS % (AUTO) 76.9 % (42.0-75.0); PLATELET COUNT 277 X10^3/uL (150.0-450.0); RED BLOOD COUNT 3.01 X10^6/uL (3.5-5.4); RED CELL DISTRIBUTION WIDTH 17.2 % (11.6-16.5); WHITE BLOOD COUNT 11.8 X10^3/uL (3.6-10.0)
[2017-08-25] MEDS: XANAX PO SCH ×3 (06:07→21:36)
[2017-08-25] MEDS: SOLU-Medrol 40 MG VIAL IVP SCH ×2 (06:07→13:40)
[2017-08-25 06:19] LABS: ALANINE AMINOTRANSFERASE 19 Units/L (12-78); ALBUMIN 3.4 g/dL (3.4-5.0); ALKALINE PHOSPHATASE 67 Units/L (46-116); ASPARTATE AMINO TRANSFERASE 23 Units/L (15-37); BLOOD UREA NITROGEN 32 mg/dL (7-18); CALCIUM 9.1 mg/dL (8.5-10.1); CARBON DIOXIDE 28.9 mmol/L (21-32); CHLORIDE 101 mmol/L (98-107); COR NA(FOR HYPERGLY) 144 mmol/L (136-145); CREATININE 1.75 mg/dL (0.55-1.02); MAGNESIUM 1.5 mg/dL (1.7-2.9); SODIUM 142 mmol/L (136-145); TOTAL PROTEIN 8.7 g/dL (6.4-8.2); eGFR BLACK RACES 35 (>60); eGFR NON BLACK RACES 29 (>60)
--- NOTE | 2017-08-25 08:14 | RAD ---
Examination: AP chest History: SOB Comparison reference 08/23/2017 Findings: Stable cardiac size. Extensive opacity at the right base is stable, consistent with airspac e disease and pleural effusion. Persistent retrocardiac opacification again noted. No complicating pn eumothorax seen. Impression: No change. Findings remain consistent with bibasal infiltrates/atelectasis and significan t right pleural effusion. The findings may represent pneumonia and/or CHF although with the history o f mastectomy, the possibility of metastatic disease should be considered. Reported By:
[2017-08-25] MEDS: VITAMIN C PO SCH ×2 (08:20→21:34)
[2017-08-25] MEDS: TAB-A-VITE PO SCH (08:20)
[2017-08-25] MEDS: COZAAR PO SCH (08:20)
[2017-08-25] MEDS: PROTONIX INJ 40 MG VIAL IVP SCH ×2 (08:20→21:37)
[2017-08-25] MEDS: NYSTATIN SUSP PO SCH ×4 (08:20→21:37)
[2017-08-25] MEDS: ROBITUSSIN DM PO SCH ×4 (08:21→21:37)
[2017-08-25] MEDS: MEGACE PO SCH ×2 (08:26→21:37)
[2017-08-25] MEDS: PATIENT'S HOME MEDICATION (Lubiprostone [Amitiza] 8 MCG) PO SCH ×2 (08:27→21:38)
[2017-08-25] MEDS: PATIENT'S HOME MEDICATION (Amino Acids/Protein Hydrolys [Pro-Stat Awc Liquid Packet] 30 ML PO SCH ×2 (08:27→21:37)
[2017-08-25] MEDS: MUCINEX DM PO SCH ×2 (08:44→22:08)
[2017-08-25] MEDS ORDERED: XOPENEX 1.25 MG/3 ML NEBULE NEB ONE (09:04)
[2017-08-25] MEDS: XOPENEX 1.25 MG/3 ML NEBULE NEB SCH ×3 (09:10→16:25)
[2017-08-25] MEDS: KLONOPIN TAB 1 MG PO SCH ×2 (09:34→21:35)
--- NOTE | 2017-08-25 15:37 | PCM.PROG ---
Progress Note - Progress Note for Day of Date: 08/25/17 - Subjective Subjective: 87 wf admitted on 08/18 with pneumonia. Pt is currently on iv atbx and continues with a productive cough and shortness of breath. She also reports difficulty sleeping and anxiousness. bilateral lungs are noted with diffuse rhonchi, decrease lung bases. Left elbow is noted with 1+ pitting edema. Her vitals are 98.3, 103, 20, 91%-176/79. Labs revealed wbc 11.8, r bc 3.01, hgb 8.9 , hct 25.9, potassium 3.0, bun 32, creatinine 1.75, glucose 187, magnesium 1.5, total protein 8.7. Today, we will start klonopin 1mg po bid and change breathing treatments to Xopenex. Otherwise, We will follow up with am labs and chest xray and continue to monitor patient. - Past Medical Family Social History Past Med/Fam/Surg Hx: No changes since H&P Allergies: Allergies atorvastatin [From Lipitor] Adverse Reaction (Verified 08/18/17 01:37) cisapride [From Propulsid] Adverse Reaction (Verified 08/18/17 01:37) clindamycin Adverse Reaction (Verified 08/18/17 01:37) codeine Adverse Reaction (Verified 08/18/17 01:37) diazepam [From Valium] Adverse Reaction (Verified 08/18/17 01:37) famciclovir [From Famvir] Adverse Reaction (Verified 08/18/17 01:37) furosemide [From Lasix] Adverse Reaction (Verified 08/18/17 01:37) hydroxyzine [From Atarax] Adverse Reaction (Verified 08/18/17 01:37) lincomycin [From Lincocin] Adverse Reaction (Verified 08/18/17 01:37) Penicillins Adverse Reaction (Verified 08/18/17 01:37) prednisone Adverse Reaction (Verified 08/18/17 01:37) shellfish derived Adverse Reaction (Verified 08/18/17:37) Sulfa (Sulfonamide Antibiotics) [SULFA] Adverse Reaction (Verified 08/18/17 01: 37) - Review of Systems ROS: No change since H&P - Vital Signs and I&O's Vital Signs: Temperature 98.5 F Pulse Rate [Right Brachial] 100 Pulse Rate [Apical] 84 Pulse Rate 93 Respiratory Rate 20 Blood Pressure [Right Arm] 149/67 Blood Pressure 139/71 O2 Sat by Pulse Oximetry 99 Intake and Output: Intake & Output 08/23/17 08/24/17 08/25/17 08/26/17 11:59 11:59 11:59 11:59 Intake Total 1125 460 600 280 Output Total 1300 1700 1425 Balance -193 -7163 -277 280 - Physical Exam Oriented: Normal Eyes: Normal Ear: Normal Nose: Normal Throat: Normal Respiratory: Diminished, Rhonchi Cardiovascular: Normal : Normal Auscultation: Bowel Sounds: Normal Palpation: Normal Tenderness: Normal Skin: Normal Musculoskeletal: Normal Psychiatric: Normal Mood Description: Calm Affect: Normal Speech Pattern: Clear, Appropriate - Laboratory and Diagnostics Result Diagrams: 08/25/17 05:50 08/25/17 13:10 Labs: 08/18/17 01:40 Blood Blood Culture - Final 08/18/17 01:50 Blood Blood Culture - Final 08/19/17 13:40 Sputum - Expectorated Sputum Sputum Culture - Final 08/19/17 13:40 Sputum - Expectorated Sputum - Final Laboratory WBC 11.8 X10^3/uL (3.6-10.0) H 08/25/17 05:50 RBC 3.01 X10^6/uL (3.5-5.4) L 08/25/17 05:50 Hgb 8.9 g/dL (12.0-16.0) L 08/25/17 05:50 Hct 25.9 % (36.0-47.0) L 08/25/17 05:50 MCV 85.9 fL (80.0-100.0) 08/25/17 05:50 MCH 29.6 pg (27.0-34.0) 08/25/17 05:50 MCHC 34.4 g/dL (33.0-35.0) 08/25/17 05:50 RDW 17.2 % (11.6-16.5) H 08/25/17 05:50 Plt Count 277 X10^3/uL (150.0-450.0) 08/25/17 05:50 Plt Count Comment Adequate (ADEQUATE) 08/20/17 04:50 MPV 8.7 fL (7.4-11.0) 08/25/17 05:50 Neut % (Auto) 76.9 % (42.0-75.0) H 08/25/17 05:50 Lymph % (Auto) 14.7 % (21.0-51.0) L 08/25/17 05:50 [place] % (Auto) 8.0 % (0.0-13.0) 08/25/17 05:50 Eos % (Auto) 0.0 % (0.9-2.9) L 08/25/17 05:50 Baso % (Auto) 0.4 % (0.2-1.0) 08/25/17 05:50 Neut # (Auto) 9.1 x10^3/uL (2.2-4.8) H 08/25/17 05:50 Lymph # (Auto) 1.7 X10^3/uL (1.3-2.9) 08/25/17 05:50 Loving # (Auto) 0.9 x10^3/uL (0.3-0.8) H 08/25/17 05:50 Eos # (Auto) 0.0 x10^3/uL (0.0-0.2) 08/25/17 05:50 Baso # (Auto) 0.1 X10^3/uL (0.0-0.1) 08/25/17 05:50 Absolute Nucleated RBC 0.0 /100WBC 08/25/17 05:50 Total Counted 100 08/20/17 04:50 Neutrophils % (Manual) 21 % (39-76) L 08/20/17 04:50 Band Neutrophils % 1 % (0-10) 08/20/17 04:50 Lymphocytes % (Manual) 66 % (13-43) H 08/20/17 04:50 Monocytes % (Manual) 10 % (4-9) H 08/20/17 04:50 Eosinophils % (Manual) 2 % (0-6) 08/20/17 04:50 Basophils % (Manual) 1 % (0-1) 08/18/17 11:03 Atypical Lymphocytes 8 08/18/17 01:50 Plt Morphology Comment Normal (NORMAL) 08/20/17 04:50 RBC Morphology Abnormal (NORMAL) A 08/20/17 04:50 Hypochromasia Slight A 08/20/17 04:50 Anisocytosis Slight A 08/18/17 01:50 Target Cells Present 08/18/17 01:50 Sodium 142 mmol/L (136-145) 08/25/17 05:50 Corrected Sodium 144 mmol/L (136-145) 08/25/17 05:50 Potassium 4.3 mmol/L (3.5-5.1) 08/25/17 13:10 Chloride 101 mmol/L (98-107) 08/25/17 05:50 Carbon Dioxide 28.9 mmol/L (21-32) 08/25/17 05:50 BUN 32 mg/dL (7-18) H 08/25/17 05:50 Creatinine 1.75 mg/dL (0.55-1.02) H 08/25/17 05:50 Est GFR (MDRD) Af Amer 35 (>60) L 08/25/17 05:50 Est GFR (MDRD) Non-Af 29 (>60) L 08/25/17 05:50 Glucose 187 mg/dL (65-99) H 08/25/17 05:50 Lactic Acid 1.4 mmol/L (0.4-2.0) 08/18/17 01:50 Calcium 9.1 mg/dL (8.5-10.1) 08/25/17 05:50 Corrected Calcium TNP 08/25/17 05:50 Magnesium 1.5 mg/dL (1.7-2.9) L 08/25/17 05:50 Total Bilirubin 0.30 mg/dL (0.2-1.0) 08/25/17 05:50 AST 23 Units/L (15-37) 08/25/17 05:50 ALT 19 Units/L (12-78) 08/25/17 05:50 Alkaline Phosphatase 67 Units/L (46-116) 08/25/17 05:50 Creatine Kinase 59 Units/L (26-192) 08/18/17 11:03 CK-MB (CK-2) 1.7 ng/mL (0-4.0) 08/18/17 11:03 CK/CKMB % Calc 2.9 % (<4) 08/18/17 11:03 Troponin I 0.17 ng/mL (0-1.5) 08/18/17 11:03 C-Reactive Protein 26.50 mg/L (0-3.0) H 08/18/17 01:50 Total Protein 8.7 g/dL (6.4-8.2) H 08/25/17 05:50 Albumin 3.4 g/dL (3.4-5.0) 08/25/17 05:50 Globulin 5.3 g/dL (2.5-4.5) H 08/25/17 05:50 Albumin/Globulin Ratio 0.6 Ratio (1.1-2.1) L 08/25/17 05:50 Specimen Type Catherized urine 08/18/17 05:21 Urine Color Yellow (YELLOW) 08/18/17 05:21 Urine Appearance Clear (CLEAR) 08/18/17 05:21 Urine pH 6.0 (5.0 - 8.0) 08/18/17 05:21 Ur Specific [place] 1.010 (1.000-1.030) 08/18/17 05:21 Urine Protein 3+ (NEGATIVE) 08/18/17 05:21 Urine Glucose (UA) Negative (NEGATIVE) 08/18/17 05:21 Urine Ketones Negative (NEGATIVE) 08/18/17 05:21 Urine Occult Blood 3+ (NEGATIVE) 08/18/17 05:21 Urine Nitrite Negative (NEGATIVE) 08/18/17 05:21 Urine Bilirubin Negative (NEGATIVE) 08/18/17 05:21 Urine Urobilinogen Normal (NORMAL) 08/18/17 05:21 Ur Leukocyte Esterase Negative (NEGATIVE) 08/18/17 05:21 Urine RBC 3-5 /HPF (NONE SEEN) 08/18/17 05:21 Urine WBC None seen /HPF (NONE SEEN) 08/18/17 05:21 Ur Squamous Epith Cells Rare /HPF (NEGATIVE) 08/18/17 05:21 Amorphous Sediment 2+ /HPF (NEGATIVE) 08/18/17 05:21 Urine Bacteria Negative /HPF (NEGATIVE) 08/18/17 05:21 Ur Culture Indicated? No/not indicated 08/18/17 05:21 - Plan (1) Pneumonia Status: Acute Qualifiers: Pneumonia type: due to unspecified organism Laterality: right Lung location: lower lobe of lung Qualified Code(s): J18.1 - Lobar pneumonia, unspecified organism Plan: levaquin 750mg iv q48h, respiratory tx, supplemental oxygen, robitussin, tussionex, continue to monitor (2) CHF (congestive heart failure) Status: Acute Qualifiers: Heart failure type: combined systolic and diastolic Heart failure chronicity: acute on chronic Qualified Code(s): I50.43 - Acute on chronic combined systolic (congestive) and diastolic (congestive) heart failure Plan: respiratory tx, supplemental oxygen, bumex, continue to monitor (3) SOB (shortness of breath) Status: Acute Plan: respiratory treatments, supplemental oxygen, continue to monitor (4) Hypertension Status: Acute Qualifiers: Hypertension type: essential hypertension Qualified Code(s): I10 - Essential (primary) hypertension Plan: losartan 50mg po daily, norvasc 5mg po daily, continue to monitor
[2017-08-25] MEDS: MAGNESIUM SULFATE 1 GM/100 mL PREMIX 1 GM/100 ML BAG IV PRN ×2 (18:01→23:32)
[2017-08-25] MEDS: ZyrTEC TAB 10 MG PO SCH (21:33)
[2017-08-25] MEDS: COLACE CAP 100 MG PO SCH (21:35)
[2017-08-25] MEDS: ZOLOFT PO SCH (21:35)
[2017-08-25] MEDS: NORVASC TAB 5 MG PO SCH (21:40)
[2017-08-26] MEDS: XOPENEX 1.25 MG/3 ML NEBULE NEB SCH ×4 (00:55→16:31)
[2017-08-26] MEDS: NORCO 10/325 TAB PO SCH ×4 (02:21→20:47)
[2017-08-26] MEDS: XANAX PO SCH ×3 (05:49→22:42)
[2017-08-26] MEDS: NS 1000 ML 1,000 ML IV SCH (05:49)
--- NOTE | 2017-08-26 06:07 | RAD ---
HISTORY: Follow-up shortness of breath, pleural effusion Study: Chest AP portable Comparison: 08/24/2017, 08/23/2017 Findings: Heart size difficult to assess due to obscuration of the right heart border by a large right pleural effusion which is increased slightly since the prior examination and obscures the right middle and ri ght lower lobe. The right upper lobe is clear increased density remains in the retrocardiac area the left lower lobe obscuring the medial left hemidiaphragm. This could be due to atelectasis or infiltra te. The remainder of the left lung is clear. The bony thorax is unremarkable. IMPRESSION: Increasing bilateral pleural effusions obscuring the lung markings in the right middle and right lowe r lobes Increased density retrocardiac area left lower lobe likely due to infiltrate and/or atelectasis, unch anged Reported By:
[2017-08-26 06:46] LABS: BASOPHILS % (AUTO) 0.5 % (0.2-1.0); HEMATOCRIT 26.1 % (36.0-47.0); HEMOGLOBIN 8.7 g/dL (12.0-16.0); LYMPHOCYTES # (AUTO) 2.5 X10^3/uL (1.3-2.9); LYMPHOCYTES % (AUTO) 23.1 % (21.0-51.0); MEAN CORPUSCULAR HEMOGLOBIN 29.2 pg (27.0-34.0); MEAN CORPUSCULAR HGB CONC 33.5 g/dL (33.0-35.0); MEAN CORPUSCULAR VOLUME 87.2 fL (80.0-100.0); MEAN PLATELET VOLUME 9.5 fL (7.4-11.0); MONOCYTES # (AUTO) 1.8 x10^3/uL (0.3-0.8); MONOCYTES % (AUTO) 17.1 % (0.0-13.0); NEUTROPHILS # (AUTO) 6.4 x10^3/uL (2.2-4.8); NEUTROPHILS % (AUTO) 59.3 % (42.0-75.0); PLATELET COUNT 223 X10^3/uL (150.0-450.0); RED BLOOD COUNT 2.99 X10^6/uL (3.5-5.4); RED CELL DISTRIBUTION WIDTH 17.4 % (11.6-16.5); WHITE BLOOD COUNT 10.7 X10^3/uL (3.6-10.0)
[2017-08-26 07:06] LABS: CALCIUM 8.8 mg/dL (8.5-10.1); CARBON DIOXIDE 27.3 mmol/L (21-32); COR CA(FOR HYPOALB) 9.6 mg/dL (8.5-10.1); CREATININE 1.36 mg/dL (0.55-1.02); MAGNESIUM 2.5 mg/dL (1.7-2.9); TOTAL PROTEIN 7.7 g/dL (6.4-8.2)
[2017-08-26] MEDS: PATIENT'S HOME MEDICATION (Amino Acids/Protein Hydrolys [Pro-Stat Awc Liquid Packet] 30 ML PO SCH ×2 (08:29→20:51)
[2017-08-26] MEDS: COZAAR PO SCH (08:29)
[2017-08-26] MEDS: PATIENT'S HOME MEDICATION (Lubiprostone [Amitiza] 8 MCG) PO SCH ×2 (08:30→20:51)
[2017-08-26] MEDS: KLONOPIN TAB 1 MG PO SCH ×2 (08:30→20:46)
[2017-08-26] MEDS: LEVAQUIN PREMIX IV 750 MG 750 MG/150 ML BAG IV SCH (08:30)
[2017-08-26] MEDS: MUCINEX DM PO SCH ×2 (08:30→20:52)
[2017-08-26] MEDS: MEGACE PO SCH ×2 (08:30→20:51)
[2017-08-26] MEDS: NYSTATIN SUSP PO SCH ×4 (08:30→20:52)
[2017-08-26] MEDS: TAB-A-VITE PO SCH (08:31)
[2017-08-26] MEDS: ROBITUSSIN DM PO SCH ×4 (08:31→20:52)
[2017-08-26] MEDS: VITAMIN C PO SCH ×2 (08:31→20:52)
[2017-08-26] MEDS: PROTONIX INJ 40 MG VIAL IVP SCH ×2 (08:31→20:52)
[2017-08-26] MEDS: TUSSIONEX PENNKINETIC SUSP PO PRN (13:34)
[2017-08-26] MEDS: ZOLOFT PO SCH (20:46)
[2017-08-26] MEDS: COLACE CAP 100 MG PO SCH (20:51)
[2017-08-26] MEDS: NORVASC TAB 5 MG PO SCH (20:52)
[2017-08-26] MEDS: ZyrTEC TAB 10 MG PO SCH (20:53)
[2017-08-27] MEDS: NORCO 10/325 TAB PO SCH ×4 (02:40→21:17)
[2017-08-27] MEDS: NS 1000 ML 1,000 ML IV SCH (02:41)
[2017-08-27] MEDS: TUSSIONEX PENNKINETIC SUSP PO PRN ×2 (02:55→17:28)
--- NOTE | 2017-08-27 04:06 | CT ---
CT chest without contrast Indication: Pneumonia. Pleural effusions. History of left breast cancer Comparison: 08/21/2017 CT Technique: Helical images through the chest without contrast. Coronal and sagittal reformats provided . Findings: Limited images through the upper abdomen show vascular plaque and left kidney atrophy. Ther e is small hiatal hernia. Review of bone windows shows no destructive osseous lesion. There is multil evel spine degenerative change. Chest: Aortic arch branch vessel plaque again noted. Small pericardial effusion again noted, unchange d from the prior coronary calcifications noted. Blood pool density appears decreased suggesting anemi a. There is large right effusion, perhaps slightly decreased from the prior. Small left effusion is note d, slightly decreased from the prior. Compressive atelectasis is noted, without pneumothorax. Develop ing infection in the dependent portions of the lungs is possible, particularly the left upper lobe or ground-glass opacity and patchy opacities noted. Unchanged left upper lobe and left upper lobe lung nodules again noted. Impression: 1. Slight improvement in the pleural effusions, with persistent cardiomegaly, pericardial effusion an d large right effusion, small left effusion as above. 2. Dependent atelectasis. Developing basilar infection is possible. 3. Lung nodules again noted. Follow-up to resolution to exclude cancer. Reported By:
[2017-08-27] MEDS: XANAX PO SCH ×3 (05:34→21:18)
[2017-08-27] MEDS: XOPENEX 1.25 MG/3 ML NEBULE NEB SCH ×5 (07:16→20:49)
--- NOTE | 2017-08-27 07:24 | RAD ---
HISTORY: Shortness of breath Study: Chest AP portable Comparison: 08/26/2017 plain film and chest CT Findings: Heart size difficult to assess due to obscuration of the right heart border by a large right pleural effusion which also obscures the right middle and right lower lobe lung markings. The pleural effusio n has decreased slightly when compared with the prior examination. A small lingular infiltrate is pre sent as is persistent increased density in the retrocardiac area of the left lower lobe demonstrated to be pleural effusion and atelectatic change on the recent chest CT. A small left pleural effusion i s present. The bony thorax is unremarkable. IMPRESSION: Slight decreased right pleural effusion which obscures the lung markings in the right middle and righ t lower lobe Lingular infiltrate Persistent increased density retrocardiac area the left lower lobe proven to be pleural effusion and atelectasis on recent chest CT. Reported By:
[2017-08-27] MEDS: KLONOPIN TAB 1 MG PO SCH ×2 (09:04→22:59)
[2017-08-27] MEDS: MUCINEX DM PO SCH ×2 (09:04→21:20)
[2017-08-27] MEDS: VITAMIN C PO SCH ×3 (09:05→21:19)
[2017-08-27] MEDS: MEGACE PO SCH ×2 (09:05→21:21)
[2017-08-27] MEDS: COZAAR PO SCH (09:06)
[2017-08-27] MEDS: PROTONIX INJ 40 MG VIAL IVP SCH ×2 (09:07→23:00)
[2017-08-27] MEDS: TAB-A-VITE PO SCH (09:07)
[2017-08-27] MEDS: ROBITUSSIN DM PO SCH ×5 (09:07→23:00)
[2017-08-27] MEDS: NYSTATIN SUSP PO SCH ×4 (09:07→23:00)
[2017-08-27] MEDS: PATIENT'S HOME MEDICATION (Amino Acids/Protein Hydrolys [Pro-Stat Awc Liquid Packet] 30 ML PO SCH ×2 (09:07→22:59)
[2017-08-27] MEDS: PATIENT'S HOME MEDICATION (Lubiprostone [Amitiza] 8 MCG) PO SCH ×2 (09:08→22:59)
[2017-08-27] MEDS: BUMEX INJ 1 MG VIAL IVP SCH (10:26)
[2017-08-27] MEDS: MILK OF MAGNESIA PO PRN (13:52)
[2017-08-27] MEDS: COLACE CAP 100 MG PO SCH (21:17)
[2017-08-27] MEDS: ZyrTEC TAB 10 MG PO SCH (21:20)
[2017-08-27] MEDS: ZOLOFT PO SCH (21:20)
[2017-08-27] MEDS: NORVASC TAB 5 MG PO SCH (23:00)
[2017-08-28] MEDS: NORCO 10/325 TAB PO SCH ×2 (02:08→09:24)
[2017-08-28] MEDS: NS 1000 ML 1,000 ML IV SCH ×2 (03:11→09:26)
[2017-08-28] MEDS: XANAX PO SCH (05:50)
[2017-08-28 06:29] LABS: BASOPHILS % (AUTO) 0.4 % (0.2-1.0); EOSINOPHILS # (AUTO) 0.1 x10^3/uL (0.0-0.2); EOSINOPHILS % (AUTO) 0.8 % (0.9-2.9); HEMATOCRIT 24.9 % (36.0-47.0); HEMOGLOBIN 8.4 g/dL (12.0-16.0); LYMPHOCYTES % (AUTO) 30.6 % (21.0-51.0); MEAN CORPUSCULAR HEMOGLOBIN 29.5 pg (27.0-34.0); MEAN CORPUSCULAR HGB CONC 33.6 g/dL (33.0-35.0); MEAN CORPUSCULAR VOLUME 87.9 fL (80.0-100.0); MEAN PLATELET VOLUME 9.2 fL (7.4-11.0); MONOCYTES # (AUTO) 1.6 x10^3/uL (0.3-0.8); NEUTROPHILS # (AUTO) 7.4 x10^3/uL (2.2-4.8); NEUTROPHILS % (AUTO) 56.2 % (42.0-75.0); PLATELET COUNT 229 X10^3/uL (150.0-450.0); RED BLOOD COUNT 2.84 X10^6/uL (3.5-5.4); RED CELL DISTRIBUTION WIDTH 17.4 % (11.6-16.5); WHITE BLOOD COUNT 13.1 X10^3/uL (3.6-10.0)
[2017-08-28 06:53] LABS: ALBUMIN 2.5 g/dL (3.4-5.0); CALCIUM 7.7 mg/dL (8.5-10.1); CARBON DIOXIDE 27.7 mmol/L (21-32); COR CA(FOR HYPOALB) 8.9 mg/dL (8.5-10.1); CREATININE 1.67 mg/dL (0.55-1.02); TOTAL PROTEIN 6.9 g/dL (6.4-8.2)
[2017-08-28] MEDS: XOPENEX 1.25 MG/3 ML NEBULE NEB SCH ×2 (09:05→13:10)
[2017-08-28] MEDS: COZAAR PO SCH (09:23)
[2017-08-28] MEDS: KLONOPIN TAB 1 MG PO SCH (09:23)
[2017-08-28] MEDS: MEGACE PO SCH (09:24)
[2017-08-28] MEDS: VITAMIN C PO SCH (09:25)
[2017-08-28] MEDS: PATIENT'S HOME MEDICATION (Lubiprostone [Amitiza] 8 MCG) PO SCH (09:25)
[2017-08-28] MEDS: MUCINEX DM PO SCH (09:25)
[2017-08-28] MEDS: BUMEX INJ 1 MG VIAL IVP SCH (09:25)
[2017-08-28] MEDS: TAB-A-VITE PO SCH (09:25)
[2017-08-28] MEDS: ROBITUSSIN DM PO SCH (09:25)
[2017-08-28] MEDS: NYSTATIN SUSP PO SCH (09:25)
[2017-08-28] MEDS: PATIENT'S HOME MEDICATION (Amino Acids/Protein Hydrolys [Pro-Stat Awc Liquid Packet] 30 ML PO SCH (09:25)
[2017-08-28] MEDS: MILK OF MAGNESIA PO PRN (09:25)
[2017-08-28] MEDS: PROTONIX INJ 40 MG VIAL IVP SCH (09:25)
[2017-08-28] MEDS: LEVAQUIN PREMIX IV 750 MG 750 MG/150 ML BAG IV SCH (09:26)
[2017-08-28] MEDS ORDERED: DULCOLAX SUPPOSITORY 10 MG RECTAL SCH (11:00)
[2017-08-28 12:18] VITALS: BP 134/58
--- NOTE | 2017-08-28 13:35 | PCM.PROG ---
Progress Note - Progress Note for Day of Date: 08/27/17 - Subjective Subjective: 87 wf admitted on 08/18 with pneumonia. Pt is currently on iv atbx and continues with a productive cough and shortness of breath. PT HAS CHF WITH BILATERAL PLEURAL EFFUSIONS. PT IS CURRENTLY ON DIURETICS WITH SLIGHT IMPROVEMENT IN EFFUSIONS ON CXR. PT SITTING UP THIS AM, AWAKE AND MORE ALERT. IMPROVING COUGH PER SON. PT ATE BREAKFAST THIS AM, RESPONDING BETTER. PT AND FAMILY REFUSED AGGRESSIVE CARE WITH CHF. PT HAS DNR IN PLACE. PLAN TO CONTINUE CURRENT REGIMEN AND REASSESS IN THE AM WITH POSSIBLE D/C TO [facility]. - Past Medical Family Social History Past Med/Fam/Surg Hx: No changes since H&P Allergies: Allergies atorvastatin [From Lipitor] Adverse Reaction (Verified 08/18/17 01:37) cisapride [From Propulsid] Adverse Reaction (Verified 08/18/17 01:37) clindamycin Adverse Reaction (Verified 08/18/17 01:37) codeine Adverse Reaction (Verified 08/18/17 01:37) diazepam [From Valium] Adverse Reaction (Verified 08/18/17 01:37) famciclovir [From Famvir] Adverse Reaction (Verified 08/18/17 01:37) furosemide [From Lasix] Adverse Reaction (Verified 08/18/17 01:37) hydroxyzine [From Atarax] Adverse Reaction (Verified 08/18/17 01:37) lincomycin [From Lincocin] Adverse Reaction (Verified 08/18/17 01:37) Penicillins Adverse Reaction (Verified 08/18/17 01:37) prednisone Adverse Reaction (Verified 08/18/17 01:37) shellfish derived Adverse Reaction (Verified 08/18/17 01:37) Sulfa (Sulfonamide Antibiotics) [SULFA] Adverse Reaction (Verified 08/18/17 01: 37) - Review of Systems ROS: No change since H&P - Vital Signs and I&O's Vital Signs: Temperature 98.7 F Pulse Rate [Left Brachial] 66 Pulse Rate [Right Brachial] 77 Pulse Rate [Apical] 84 Pulse Rate 68 Respiratory Rate 18 Blood Pressure [Left Arm] 134/58 Blood Pressure [Right Arm] 147/68 Blood Pressure 139/71 O2 Sat by Pulse Oximetry 97 Intake and Output: Intake & Output 08/26/17 08/27/17 08/28/1708/29/18 11:59 11:59 11:59 11:59 Intake Total 5162 204 701 Output Total 825 420 400 Balance 425 255 231 - Physical Exam Oriented: Normal Eyes: Normal Ear: Normal Nose: Normal Throat: Normal Respiratory: Diminished, Rhonchi Cardiovascular: Normal : Normal Auscultation: Bowel Sounds: Normal Tenderness: Normal Skin: Normal Musculoskeletal: Right, Left, Leg, Tender, Deformity, Motor Deficit, Sensory Deficit Psychiatric: Normal Mood Description: Calm Affect: Anxious, Normal Speech Pattern: Clear, Appropriate - Laboratory and Diagnostics Result Diagrams: 08/28/17 05:00 08/28/17 05:00 Labs: 08/18/17 01:40 Blood Blood Culture - Final 08/18/17 01:50 Blood Blood Culture - Final 08/19/17 13:40 Sputum - Expectorated Sputum Sputum Culture - Final 08/19/17 13:40 Sputum - Expectorated Sputum - Final Laboratory WBC 13.1 X10^3/uL (3.6-10.0) H 08/28/17 05:00 RBC 2.84 X10^6/uL (3.5-5.4) L 08/28/17 05:00 Hgb 8.4 g/dL (12.0-16.0) L 08/28/17 05:00 Hct 24.9 % (36.0-47.0) L 08/28/17 05:00 MCV 87.9 fL (80.0-100.0) 08/28/17 05:00 MCH 29.5 pg (27.0-34.0) 08/28/17 05:00 MCHC 33.6 g/dL (33.0-35.0) 08/28/17 05:00 RDW 17.4 % (11.6-16.5) H 08/28/17 05:00 Plt Count 229 X10^3/uL (150.0-450.0) 08/28/17 05:00 Plt Count Comment Adequate (ADEQUATE) 08/20/17 04:50 MPV 9.2 fL (7.4-11.0) 08/28/17 05:00 Neut % (Auto) 56.2 % (42.0-75.0) 08/28/17 05:00 Lymph % (Auto) 30.6 % (21.0-51.0) 08/28/17 05:00 [place] % (Auto) 12.0 % (0.0-13.0) 08/28/17 05:00 Eos % (Auto) 0.8 % (0.9-2.9) L 08/28/17 05:00 Baso % (Auto) 0.4 % (0.2-1.0) 08/28/17 05:00 Neut # (Auto) 7.4 x10^3/uL (2.2-4.8) H 08/28/17 05:00 Lymph # (Auto) 4.0 X10^3/uL (1.3-2.9) H 08/28/17 05:00 [place] # (Auto) 1.6 x10^3/uL (0.3-0.8) H 08/28/17 05:00 Eos # (Auto) 0.1 x10^3/uL (0.0-0.2) 08/28/17 05:00 Baso # (Auto) 0.0 X10^3/uL (0.0-0.1) 08/28/17 05:00 Absolute Nucleated RBC 0.0 /100WBC 08/28/17 05:00 Total Counted 100 08/20/17 04:50 Neutrophils % (Manual) 21 % (39-76) L 08/20/17 04:50 Band Neutrophils % 1 % (0-10) 08/20/17 04:50 Lymphocytes % (Manual) 66 % (13-43) H 08/20/17 04:50 Monocytes % (Manual) 10 % (4-9) H 08/20/17 04:50 Eosinophils % (Manual) 2 % (0-6) 08/20/17 04:50 Basophils % (Manual) 1 % (0-1) 08/18/17 11:03 Atypical Lymphocytes 8 08/18/17 01:50 Plt Morphology Comment Normal (NORMAL) 08/20/17 04:50 RBC Morphology Abnormal (NORMAL) A 08/20/17 04:50 Hypochromasia Slight A 08/20/17 04:50 Anisocytosis Slight A 08/18/17 01:50 Target Cells Present 08/18/17 01:50 Sodium 141 mmol/L (136-145) 08/28/17 05:00 Corrected Sodium 141 mmol/L (136-145) 08/28/17 05:00 Potassium 4.0 mmol/L (3.5-5.1) 08/28/17 05:00 Chloride 105 mmol/L (98-107) 08/28/17 05:00 Carbon Dioxide 27.7 mmol/L (21-32) 08/28/17 05:00 BUN 34 mg/dL (7-18) H 08/28/17 05:00 Creatinine 1.67 mg/dL (0.55-1.02) H 08/28/17 05:00 Est GFR (MDRD) Af Amer 37 (>60) L 08/28/17 05:00 Est GFR (MDRD) Non-Af 31 (>60) L 08/28/17 05:00 Glucose 119 mg/dL (65-99) H 08/28/17 05:00 Lactic Acid 1.4 mmol/L (0.4-2.0) 08/18/17 01:50 Calcium 7.7 mg/dL (8.5-10.1) L 08/28/17 05:00 Corrected Calcium 8.9 mg/dL (8.5-10.1) 08/28/17 05:00 Magnesium 2.5 mg/dL (1.7-2.9) 08/26/17 06:00 Total Bilirubin 0.30 mg/dL (0.2-1.0) 08/28/17 05:00 AST 14 Units/L (15-37) L 08/28/17 05:00 ALT 19 Units/L (12-78) 08/28/17 05:00 Alkaline Phosphatase 59 Units/L (46-116) 08/28/17 05:00 Creatine Kinase 59 Units/L (26-192) 08/18/17 11:03 CK-MB (CK-2) 1.7 ng/mL (0-4.0) 08/18/17 11:03 CK/CKMB % Calc 2.9 % (<4) 08/18/17 11:03 Troponin I 0.17 ng/mL (0-1.5) 08/18/17 11:03 C-Reactive Protein 26.50 mg/L (0-3.0) H 08/18/17 01:50 Total Protein 6.9 g/dL (6.4-8.2) 08/28/17 05:00 Albumin 2.5 g/dL (3.4-5.0) L 08/28/17 05:00 Globulin 4.4 g/dL (2.5-4.5) 08/28/17 05:00 Albumin/Globulin Ratio 0.6 Ratio (1.1-2.1) L 08/28/17 05:00 Specimen Type Catherized urine 08/18/17 05:21 Urine Color Yellow (YELLOW) 08/18/17 05:21 Urine Appearance Clear (CLEAR) 08/18/17 05:21 Urine pH 6.0 (5.0 - 8.0) 08/18/17 05:21 Ur Specific [place] 1.010 (1.000-1.030) 08/18/17 05:21 Urine Protein 3+ (NEGATIVE) 08/18/17 05:21 Urine Glucose (UA) Negative (NEGATIVE) 08/18/17 05:21 Urine Ketones Negative (NEGATIVE) 08/18/17 05:21 Urine Occult Blood 3+ (NEGATIVE) 08/18/17 05:21 Urine Nitrite Negative (NEGATIVE) 08/18/17 05:21 Urine Bilirubin Negative (NEGATIVE) 08/18/17 05:21 Urine Urobilinogen Normal (NORMAL) 08/18/17 05:21 Ur Leukocyte Esterase Negative (NEGATIVE) 08/18/17 05:21 Urine RBC 3-5 /HPF (NONE SEEN) 08/18/17 05:21 Urine WBC None seen /HPF (NONE SEEN) 08/18/17 05:21 Ur Squamous Epith Cells Rare /HPF (NEGATIVE) 08/18/17 05:21 Amorphous Sediment 2+ /HPF (NEGATIVE) 08/18/17 05:21 Urine Bacteria Negative /HPF (NEGATIVE) 08/18/17 05:21 Ur Culture Indicated? No/not indicated 08/18/17 05:21 - Plan (1) Pneumonia Status: Acute Qualifiers: Pneumonia type: due to unspecified organism Laterality: right Lung location: lower lobe of lung Qualified Code(s): J18.1 - Lobar pneumonia, unspecified organism Plan: levaquin 750mg iv q48h, respiratory tx, supplemental oxygen, robitussin, tussionex, continue to monitor (2) CHF (congestive heart failure) Status: Acute Qualifiers: Heart failure type: combined systolic and diastolic Heart failure chronicity: acute on chronic Qualified Code(s): I50.43 - Acute on chronic combined systolic (congestive) and diastolic (congestive) heart failure Plan: respiratory tx, supplemental oxygen, bumex, continue to monitor (3) Hypertension Status: Acute Qualifiers: Hypertension type: essential hypertension Qualified Code(s): I10 - Essential (primary) hypertension Plan: losartan 50mg po daily, norvasc 5mg po daily, continue to monitor (4) GERD (gastroesophageal reflux disease) Status: Acute
== END 2017-08-28 14:20 | DRG 193 ==
LOC: ER 00:59 → OBSVTOIN 04:06 → ICU 04:06 → MED/SURG 08-20 19:10
PROVIDERS: ADMIT Internal Medicine; ATTEND Internal Medicine
DX: J18.8 Other pneumonia, unspecified organism (principal); I50.43 Acute on chronic combined systolic (congestive) and diastolic (congestive) heart failure; J90 Pleural effusion, not elsewhere classified; R06.02 Shortness of breath; R07.89 Other chest pain; R10.84 Generalized abdominal pain; R94.31 Abnormal electrocardiogram [ECG] [EKG]; I10 Essential (primary) hypertension; R94.4 Abnormal results of kidney function studies; K21.9 Gastro-esophageal reflux disease without esophagitis; R79.82 Elevated C-reactive protein (CRP); R13.12 Dysphagia, oropharyngeal phase
CPT/HCPCS: 36415; 51702; 71045; 71250; 80053; 81001; 82550; 82553; 83605; 83735; 84132; 84484; 85025; 86140; 87040; 87070; 87205; 93005; 93010; 94640; 94660; 94669; 96365; 96367; 96374; 96375; 99284; A4222; A4618; A7030; C9113; P9047; S0028; S0171; S0179; J0610; J1940; J1956; J2920; J3490; J7608; J7620